=== PATIENT | male | born 1960 | race Caucasian/White ===

== ENCOUNTER 2020-08-07 12:39 | Emergency (ER) | payer MEDICARE, OTHER, SELFPAY ==
[2020-08-07 14:01] VITALS: BP 170/89; PULSE 89; RESP 18; TEMP 36.8; O2SAT 96; BMI 33.0
--- NOTE | 2020-08-07 14:37 | ED.SKABFB ---
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 No fever or chills. No blurred vision. No headache. MD complaint: abscess/boil Onset (ago): day(s) Tetanus up to date: yes Location: head Severity: mild Pain Consistency: intermittent Associated symptoms: denies other symptoms Treatments prior to arrival: none Related Data Home Medications Medication Instructions Recorded Confirmed albuterol sulfate 90 mcg/actuation 2 puff INHALATION Q4-6H PRN 07/26/20 07/26/20 aerosol inhaler diazepam 10 mg tablet 10 mg PO BID 07/26/20 07/26/20 gabapentin 100 mg capsule 200 mg PO BID cap 07/26/20 07/26/20 ibuprofen 800 mg tablet 800 mg PO TID 07/26/20 07/26/20 Previous Rx's Medication Instructions Recorded cephalexin [Keflex] 500 mg PO Q8H 10 Days #30 cap 08/07/20 mupirocin 1 applic TOPICAL BID 7 Days #22 g 08/07/20 sulfamethoxazole-trimethoprim 1 tab PO Q12H 7 Days #14 tab 08/07/20 [Bactrim DS] Allergies Allergy/AdvReac Type Severity Reaction Status Date / Time hydrocodone [HYDROCODONE] Allergy Unknown RASH Verified 08/07/20 14:00 latex [LATEX] Allergy Unknown UNKNOWN Verified 08/07/20 14:00 morphine Allergy Unknown stomach Verified 08/07/20 14:00 upset flu shot Allergy Unknown felt very Uncoded 08/07/20 14:00 sick Vicodin AdvReac Unknown stomach Uncoded 08/07/20 14:00 upset Review of Systems Review of Systems: Constitutional: No Weight loss, No Fever, No Chills, No Night Sweats, No Fatigue, No Malaise ENT/Mouth: No Hearing loss, No Ear Pain, No Nasal Congestion, No Sinus Pain, No Hoarseness, No sore throat, No Rhinorrhea, No Swallowing Difficulty Eyes: No Eye Pain, No Swelling, No Redness, No Foreign Body, No Discharge, No Vision Changes Cardiovascular: No Chest Pain Respiratory: No Cough, No Sputum Musculoskeletal: No joint pain, No Myalgias, No Joint Swelling Skin: No Skin Lesions, No rash Neuro: No Weakness, No Numbness, No Paresthesias, No Loss of Consciousness, No Dizziness, No Headache Psych: No Social Issues Heme/Lymph: No Bruising, No Bleeding,No Lymphadenopathy Endocrine: No Polyuria, No Polydipsia, No Temperature Intolerance Yes all other systems are reviewed and are negative [facility] Past Medical History Attestation statement: The following information was validated with the patient. Medical History Cervicalgia Constipation Degenerative cervical spinal stenosis Foraminal stenosis of cervical region Homeless Opiate abuse, continuous PTSD (post-traumatic stress disorder) Smoker Social History Social History (Reviewed 07/26/20 @ 16:51 by Spencer Cortez, [facility]) Alcohol intake: never Smoking Status: Current every day smoker Packs Per Day: 0.5 Cigarettes Per Day: 10.0 Use of substances other than those prescribed or required for medical reasons: Yes Substance Use Type: Marijuana Substance Use Frequency: Occasionally Advance Directives: No Advance Directives Information Provided: No Physical Exam Vital Signs: Vital Signs: Last Vital Signs Temp 98.3 F 08/07/20 14:01 Pulse 89 08/07/20 14:01 Resp 18 08/07/20 14:01 BP 170/89 H 08/07/20 14:01 Pulse Ox 96 08/07/20 14:01 Body Mass Index 33.0 Reviewed Const: General: cooperative and healthy appearing; No acute distress or intoxicated appearing Nutritional Appearance: average body habitus Orientation/consciousness: patient oriented x3 HENMT: Other: Site was covered with a scab which was de roofed. Area little bigger in size of a quarter slightly indurated but no expressible discharge. Head: Yes normal to inspection Ears: hearing grossly normal bilaterally Eyes: General: appearance normal, both eyes and all related structures Visual Spann: normal visual spann by confrontation Neck: Neck: Yes normal visual inspection, No positive Brudzinski's sign, No positive Kernig's sign and No tender Thyroid: Thyroid normal Chest: Chest palpation & inspection: normal inspection of the chest Resp: Effort & Inspection: normal respiratory effort Cardio: Jugular venous distension: no JVD GI: Inspection: Yes normal to inspection Percussion: Yes normal to percussion Auscultation: normal bowel sounds : General: Yes no CVA tenderness Back/Spine/Pelvis: Back: no CVA tenderness Skin: General skin exam: no rashes or lesions noted Neuro: General: patient oriented x3 Extrem: General: Yes normal to inspection MDM - Skin/Abscess/Foreign Bdy Differential Diagnosis Differential diagnosis: Likely abscess of skin or subcutaneous tissue, cellulitis, impetigo and contact dermatitis (Folliculitis) Discharge Plan Discharge Clinical Impression: Abscess of skin or subcutaneous tissue Patient Disposition: Home, Self-Care Instructions: Abscess (ED) Additional Instructions: You have a small scalp abscess likely from a follicular (hair infection) this abscess is about the size of a quarter and it already has a central opening which were worse able to express very small amount of purulent discharge from. There is no need for incisional drainage Keep site clean and dry Warm compresses Apply topical ointment as prescribed Take your antibiotics as prescribed Have recheck in about 5-7 days Return to emergency room if any concerns or worsening symptoms Thank you Prescriptions: New cephalexin [Keflex] 500 mg capsule 500 mg PO Q8H 10 Days Qty: 30 RF: 0 sulfamethoxazole-trimethoprim [Bactrim DS] 800-160 mg tablet 1 tab PO Q12H 7 Days Qty: 14 RF: 0 mupirocin 2 % ointment 1 applic topical BID 7 Days Qty: 22 RF: 0 No Action albuterol sulfate 90 mcg/actuation HFA aerosol inhaler 2 puff inhalation Q4-6H PRNRF: 0 diazepam 10 mg tablet 10 mg PO BID RF: 0 ibuprofen 800 mg tablet 800 mg PO TID RF: 0 gabapentin 100 mg capsule 200 mg PO BID RF: 0 Referrals: ED Physician,Generic [Emergency Provider] - 5 days (Primary care doctor)
== END 2020-08-07 15:18 | disposition home or self-care (01) ==
PROVIDERS: Emergency Provider Emergency Medicine
DX: L02.811 Cutaneous abscess of head [any part, except face] (principal); F17.200 Nicotine dependence, unspecified, uncomplicated; Z71.6 Tobacco abuse counseling; F12.90 Cannabis use, unspecified, uncomplicated; Z79.899 Other long term (current) drug therapy
CPT/HCPCS: 99284

== ENCOUNTER 2020-08-09 13:49 | Emergency (ER) | payer MEDICARE, OTHER, SELFPAY ==
[2020-08-09 14:01] VITALS: PULSE 92; RESP 16; TEMP 36.9; O2SAT 94; BMI 33.0
[2020-08-09] MEDS: Lidocaine HCl 1 % MPF 5 ML VIAL SUBCUT (15:03)
--- NOTE | 2020-08-09 15:14 | ED.SKABFB ---
HPI - Skin/Abscess/Foreign Bdy General Chief complaint: Skin/Abscess/Foreign Body Stated complaint: RECHECK ABSCESS Time Seen by Provider: 08/09/20 14:39 Source: patient Mode of arrival: ambulatory Limitations: no limitations History of Present Illness HPI narrative: 60-year-old male with a past medical history of MRSA presenting to the ED with complaints of worsening swelling to his scalp of the abscess that is currently being treated by Keflex and Bactrim prescribed on Friday when he was seen here. Reports he does not believe it was helping. Denies any additional complaints or concerns at this time. Related Data Home Medications Medication Instructions Recorded Confirmed albuterol sulfate 90 mcg/actuation 2 puff INHALATION Q4-6H PRN 07/26/20 07/26/20 aerosol inhaler diazepam 10 mg tablet 10 mg PO BID 07/26/20 07/26/20 gabapentin 100 mg capsule 200 mg PO BID cap 07/26/20 07/26/20 ibuprofen 800 mg tablet 800 mg PO TID 07/26/20 07/26/20 Previous Rx's Medication Instructions Recorded cephalexin [Keflex] 500 mg PO Q8H 10 Days #30 cap 08/07/20 mupirocin 1 applic TOPICAL BID 7 Days #22 g 08/07/20 sulfamethoxazole-trimethoprim 1 tab PO Q12H 7 Days #14 tab 08/07/20 [Bactrim DS] ibuprofen 800 mg PO Q8H PRN #14 tab 08/09/20 oxycodone-acetaminophen [Percocet] 1 tab PO Q6H PRN #10 tab 08/09/20 Allergies Allergy/AdvReac Type Severity Reaction Status Date / Time hydrocodone [HYDROCODONE] Allergy Unknown RASH Verified 08/07/20 14:00 latex [LATEX] Allergy Unknown UNKNOWN Verified 08/07/20 14:00 morphine Allergy Unknown stomach Verified 08/07/20 14:00 upset flu shot Allergy Unknown felt very Uncoded 08/07/20 14:00 sick Vicodin AdvReac Unknown stomach Uncoded 08/07/20 14:00 upset Review of Systems Review of Systems: Constitutional : No Fever, No Chills , no body aches, no recent illness Head/Face: No facial swelling, No facial redness ENT/Mouth : No oral/throat swelling, No Hoarseness, No Swallowing Difficulty Eyes: No Eye Pain, No Swelling, No Redness Cardiovascular : No Chest Pain, No SOB, No palpitations Respiratory : No Cough, No Sputum, No Wheezing, No Smoke Exposure, No Dyspnea Gastrointestinal : No Nausea, No Vomiting, No Diarrhea, No abdominal Pain Genitourinary : No Dysuria, No Urinary Frequency, No Hematuria Musculoskeletal : No joint pain, No Myalgias, No Joint Swelling Skin : + Skin Lesions/abscess, No rash Neuro : No Weakness, No Numbness, No Headache, No dizziness, No tingling Psych : No Anxiety/Panic, No Depression Heme/Lymph: No Bruising, No Lymphadenopathy Endocrine : No Polyuria, No Polydipsia Denies changes in lotions or detergents. Denies new medications or any changes in medications. Denies drainage from rash. Denies any recent sick contacts or recent travel. Yes all other systems are reviewed and are negative [facility] Past Medical History Attestation statement: The following information was validated with the patient. Medical History Cervicalgia Constipation Degenerative cervical spinal stenosis Foraminal stenosis of cervical region Homeless Opiate abuse, continuous PTSD (post-traumatic stress disorder) Smoker Social History Social History Alcohol intake: never Smoking Status: Current every day smoker Packs Per Day: 0.5 Cigarettes Per Day: 10.0 Substance Use Type: Marijuana Advance Directives: No Advance Directives Information Provided: Yes Physical Exam Vital Signs: Vital Signs: Last Vital Signs Temp 98.5 F 08/09/20 14:01 Pulse 92 08/09/20 14:01 Resp 16 08/09/20 14:01 Pulse Ox 94 08/09/20 14:01 Body Mass Index 33.0 vital signs have been reviewed as normal and appeared to be correct. Blood pressure normal. Heart rate normal. Respiration rate normal. Temperature normal. Oxygen saturation normal. Appearance: Alert. Oriented X3. No acute distress. Head: to the posterior scalp upper aspect there is medium size erythematous fluctuant abscess noted with mild purulent drainage. No foreign bodies noted. Eyes: PERRLA. EOMI. Conjunctiva and sclera normal. Eyelids normal. ENT: Pharynx normal. Uvula midline. Moist mucous membranes. Neck: Normal inspection. Neck supple. FROM. No adenopathy. No meningeal signs. CVS: Normal heart rate and rhythm. Heart sound normal. No murmurs noted. Pulses normal throughout. Respiratory: No respiratory distress. Painless inspiration. Back: Full range of motion noted. Skin: Skin warm and dry. Normal skin color. Normal skin turgor. No rashes/lacerations noted. See above. Extremities: No lower extremity edema. Extremities exhibit normal range of motion. Extremities nontender. Neuro: Oriented X 3. No motor deficit. No sensory deficit. Reflexes normal. Course Course Course Narrative: Patient is now status post I&D of scalp abscess. Is currently on Keflex and Bactrim is taking as prescribed. Denies any additional complaints or concerns at this time. Will DC home with symptomatic treatment along with instructions return if any new or worsening symptoms and to finish the antibiotics as previously prescribed and follow-up with primary care provider. Patient understands agrees with this plan. Procedures Abscess I/D Site: scalp Local Anesthetic: lidocaine 1% Amount of anesthesia used (mL): 5 Technique: incised with blade Amount of fluid expressed (mL): 3 Sent for culture/gram staining?: No Irrigation: Yes Packing used?: none Complications: other ( Mild bleeding no other complications) MDM - Skin/Abscess/Foreign Bdy Medical Records Attestation: I reviewed the patient's medical records. Discharge Plan Discharge Clinical Impression: Abscess of skin or subcutaneous tissue Patient Disposition: Home, Self-Care Instructions: Abscess (ED) Prescriptions: New ibuprofen 800 mg tablet 800 mg PO Q8H PRN (Reason: pain) Qty: 14 RF: 0 oxycodone-acetaminophen [Percocet] 5-325 mg tablet 1 tab PO Q6H PRN (Reason: pain) Qty: 10 RF: 0 No Action cephalexin [Keflex] 500 mg capsule 500 mg PO Q8H 10 Days Qty: 30 RF: 0 sulfamethoxazole-trimethoprim [Bactrim DS] 800-160 mg tablet 1 tab PO Q12H 7 Days Qty: 14 RF: 0 mupirocin 2 % ointment 1 applic topical BID 7 Days Qty: 22 RF: 0 albuterol sulfate 90 mcg/actuation HFA aerosol inhaler 2 puff inhalation Q4-6H PRNRF: 0 diazepam 10 mg tablet 10 mg PO BID RF: 0 ibuprofen 800 mg tablet 800 mg PO TID RF: 0 gabapentin 100 mg capsule 200 mg PO BID RF: 0 Referrals: Physician,Unknown [Primary Care Provider] - 2 days (your pcp) Print Language: Burkinan
== END 2020-08-09 15:34 | disposition home or self-care (01) ==
PROVIDERS: Emergency Provider Emergency Medicine
DX: L02.811 Cutaneous abscess of head [any part, except face] (principal); F17.200 Nicotine dependence, unspecified, uncomplicated; Z71.6 Tobacco abuse counseling; Z79.899 Other long term (current) drug therapy; Z79.2 Long term (current) use of antibiotics; Z59.0 Homelessness
CPT/HCPCS: 10060; 99284

== ENCOUNTER 2021-05-13 13:20 | Emergency (ER) | payer MEDICARE, SELFPAY ==
[2021-05-13 13:55] VITALS: BP 183/97; PULSE 72; RESP 18; TEMP 36.6; O2SAT 97; BMI 34.6
--- NOTE | 2021-05-13 18:36 | ED_ITS ---
HPI - General Adult General Chief complaint: General Medical Stated complaint: ? inf - foot pain swelling Time Seen by Provider: 05/13/21 17:45 Source: patient Mode of arrival: ambulatory Limitations: no limitations History of Present Illness HPI narrative: Patient with history of recurrent b/l leg swelling for last 1 year specially when patient stands for hours also patient allergic to latex wear shoes without socks sometimes, noticed increased swelling and rash on by both legs no fever no chills no shortness of breath no liver disease. Patient been sleeping in the car for last 1 year Related Data Home Medications Medication Instructions Recorded Confirmed albuterol sulfate 90 mcg/actuation 2 puff INHALATION Q4-6H PRN 07/26/20 07/26/20 aerosol inhaler diazepam 10 mg tablet 10 mg PO BID 07/26/20 07/26/20 gabapentin 100 mg capsule 200 mg PO BID cap 07/26/20 07/26/20 ibuprofen 800 mg tablet 800 mg PO TID 07/26/20 07/26/20 Previous Rx's Medication Instructions Recorded cephalexin 500 mg capsule (Keflex) 500 mg PO Q8H 10 Days #30 cap 08/07/20 mupirocin 2 % topical ointment 1 applic TOPICAL BID 7 Days #22 g 08/07/20 sulfamethoxazole 800 1 tab PO Q12H 7 Days #14 tab 08/07/20 mg-trimethoprim 160 mg tablet (Bactrim DS) ibuprofen 800 mg tablet 800 mg PO Q8H PRN #14 tab 08/09/20 oxycodone-acetaminophen 5 mg-325 1 tab PO Q6H PRN #10 tab 08/09/20 mg tablet (Percocet) azithromycin 250 mg tablet See Rx Instructions PO .COMPLEX #6 10/31/20 tab benzonatate 100 mg capsule 100 mg PO BID PRN #20 cap 10/31/20 (Tessalon Perles) prednisone 20 mg tablet 20 mg PO DAILY 9 Days #18 tab 10/31/20 cephalexin 500 mg capsule 500 mg PO QID 10 Days #40 cap 05/13/21 doxycycline hyclate 100 mg tablet 100 mg PO BID #20 tab 05/13/21 Allergies Allergy/AdvReac Type Severity Reaction Status Date / Time hydrocodone [HYDROCODONE] Allergy Unknown RASH Verified 08/07/20 14:00 Influenza Virus Vaccines Allergy Unknown felt very Verified 12/22/20 14:22 sick latex [LATEX] Allergy Unknown UNKNOWN Verified 08/07/20 14:00 morphine Allergy Unknown stomach Verified 09/12/20 14:22 upset acetaminophen [From Vicodin] AdvReac Unknown Stomach Verified 09/12/20 14:22 Upset Review of Systems Review of Systems: Yes all other systems are reviewed and are negative [facility] Past Medical History Medical History Cervicalgia Constipation Degenerative cervical spinal stenosis Foraminal stenosis of cervical region Homeless Opiate abuse, continuous PTSD (post-traumatic stress disorder) Smoker Surgical History History of arthroscopy of left shoulder History of discectomy History of surgery Family History Family History Father Alzheimer's disease Diabetes mellitus Mother COPD (chronic obstructive pulmonary disease) Pleurisy Brother No problems noted. Sister Melanoma Son No problems noted. Son No problems noted. Social History Social History Alcohol intake: current Alcohol intake frequency: holidays/special occasions only Alcohol type: beer and wine Cigarette Packs Per Day: 0.5 Cigarettes Per Day: 10.0 Substance Use Type: Marijuana Advance Directives: No Advance Directives Information Provided: No Physical Exam Vital Signs: Vital Signs: Last Vital Signs Temp 97.8 F 05/13/21 13:55 Pulse 72 05/13/21 13:55 Resp 18 05/13/21 13:55 BP 183/97 H 05/13/21 13:55 Pulse Ox 97 05/13/21 13:55 Body Mass Index 34.6 Appearance: Alert. Oriented X3. No acute distress. Eyes: No pallor or icterus ENT: Pharynx normal. Oral Mucosa moist Neck: Normal inspection. Neck supple. CVS: Normal heart rate and rhythm. Pulses normal. Respiratory: No respiratory distress. Equal air entry bilateral, no wheezing/rales/rhonchi Abdomen: Soft and nontender. Bowel sounds are present, no mass palpable, no CVA tenderness Skin: Skin warm and dry. Normal skin color. Normal skin turgor. Extremities:3+lower extremity edema ,erythematous rash bilateral lower extremity with scratch on No calf tenderness Mendoza sign negative Neuro: Oriented X 3. No motor deficit. No sensory deficit.No cerebellar signs , cranial nerves II-XII intact Medical Decision Making MDM Narrative Medical decision making narrative: Patient refused to stay in the ER for lab workup says that he had similar problem last year and had a workup done which was negative will give the prescription for doxycycline and Keflex patient will be following with his PCP tomorrow Discharge Plan Discharge Clinical Impression: Cellulitis Qualifiers: Site of cellulitis: extremity Site of cellulitis of extremity: lower extremity Laterality: unspecified laterality Qualified Code(s): L03.119 - Cellulitis of unspecified part of limb Patient Disposition: Left Against Medical Advice Instructions: Cellulitis (ED) Additional Instructions: Keep your legs elevated Antibiotic as prescribed Follow with PCP if not better Do not wear latex use Prescriptions: New cephalexin 500 mg capsule 500 mg PO QID 10 Days Qty: 40 RF: 0 doxycycline hyclate 100 mg tablet 100 mg PO BID Qty: 20 RF: 0 No Action cephalexin [Keflex] 500 mg capsule 500 mg PO Q8H 10 Days Qty: 30 RF: 0 sulfamethoxazole-trimethoprim [Bactrim DS] 800-160 mg tablet 1 tab PO Q12H 7 Days Qty: 14 RF: 0 mupirocin 2 % ointment 1 applic topical BID 7 Days Qty: 22 RF: 0 ibuprofen 800 mg tablet 800 mg PO Q8H PRN (Reason: pain) Qty: 14 RF: 0 oxycodone-acetaminophen [Percocet] 5-325 mg tablet 1 tab PO Q6H PRN (Reason: pain) Qty: 10 RF: 0 albuterol sulfate 90 mcg/actuation HFA aerosol inhaler 2 puff inhalation Q4-6H PRNRF: 0 diazepam 10 mg tablet 10 mg PO BID RF: 0 ibuprofen 800 mg tablet 800 mg PO TID RF: 0 gabapentin 100 mg capsule 200 mg PO BID RF: 0 azithromycin 250 mg tablet See Rx Instructions PO .COMPLEX Qty: 6 RF: 0 prednisone 20 mg tablet 20 mg PO DAILY 9 Days Qty: 18 RF: 0 benzonatate [Tessalon Perles] 100 mg capsule 100 mg PO BID PRN (Reason: cough) Qty: 20 RF: 0 Discharge Date/Time: 05/13/21 17:54
[2021-05-13] MEDS: cephALEXin 500 MG CAPSULE PO (19:17)
== END 2021-05-13 19:23 | disposition left against medical advice (07) ==
PROVIDERS: Emergency Provider Internal Medicine; PCP Nurse Practitioner Family
DX: L03.119 Cellulitis of unspecified part of limb (principal); F17.210 Nicotine dependence, cigarettes, uncomplicated; F12.90 Cannabis use, unspecified, uncomplicated; F11.10 Opioid abuse, uncomplicated; Z71.6 Tobacco abuse counseling; Z79.899 Other long term (current) drug therapy; Z59.0 Homelessness
CPT/HCPCS: 99283

== ENCOUNTER 2022-04-04 03:19 | Emergency (ER) | payer MEDICARE, SELFPAY ==
--- NOTE | ~2022-04-04 | XR_ITS ---
EXAMINATION: XR CHEST CLINICAL INFORMATION: Shortness of breath COMPARISON: None TECHNIQUE: 2 views of the chest were obtained. FINDINGS: The lungs are hyperinflated, suggesting underlying COPD. No focal consolidation is seen. No evidence of pneumothorax, pleural effusion, or pulmonary edema. The cardiomediastinal contour is unremarkable. Fusion hardware noted in the cervical spine. No acute osseous findings are seen. XR/XR chest 2V IMPRESSION: No acute cardiopulmonary findings. Hyperinflated lungs suggesting COPD.
[2022-04-04 03:33] VITALS: BP 151/89; RESP 22; TEMP 36.7; O2SAT 93; BMI 34.2
[2022-04-04 04:12] LABS: COVID-19 Test Negative (Negative); IDNOW Serial# 16C4AD1C; Influenza A Negative (Negative); Influenza B2 Negative (Negative)
--- NOTE | 2022-04-04 04:17 | ED.URI ---
HPI - URI/Sore Throat General Chief Complaint: Upper Respiratory Symptoms Stated Complaint: Sob Time Seen by Provider: 04/04/22 04:17 Source: patient Mode of arrival: ambulatory Limitations: no limitations History of Present Illness HPI Narrative: Patient is smoker with history of COPD been coughing with wheezing for last 2 3 days does not have an inhaler at home patient does get sick like this every year no fever no chills unable to get any phlegm out Related Data Home Medications Medication Instructions Recorded Confirmed albuterol sulfate 90 mcg/actuation 2 puff inhalation Q4-6H PRN 07/26/20 07/26/20 aerosol inhaler diazepam 10 mg tablet 10 mg PO BID 07/26/20 07/26/20 ibuprofen 800 mg tablet 800 mg PO TID 07/26/20 07/26/20 Previous Rx's Medication Instructions Recorded cephalexin 500 mg capsule (Keflex) 500 mg PO Q8H 10 days #30 caps 08/07/20 mupirocin 2 % topical ointment 1 applic topical BID 7 days #22 08/07/20 grams sulfamethoxazole 800 1 tab PO Q12H 7 days #14 tabs 08/07/20 mg-trimethoprim 160 mg tablet (Bactrim DS) ibuprofen 800 mg tablet 800 mg PO Q8H PRN pain #14 tabs 08/09/20 oxycodone-acetaminophen 5 mg-325 1 tab PO Q6H PRN pain #10 tabs 20 mg tablet (Percocet) azithromycin 250 mg tablet See Rx Instructions PO .COMPLEX #6 10/31/20 tabs benzonatate 100 mg capsule 100 mg PO BID PRN cough #20 caps 10/31/20 (Nini Nguyen) prednisone 20 mg tablet 20 mg PO DAILY 9 days #18 tabs 10/31/20 cephalexin 500 mg capsule 500 mg PO QID 10 days #40 caps 05/13/21 doxycycline hyclate 100 mg tablet 100 mg PO BID #20 tabs 05/13/21 triamcinolone acetonide 0.1 % 1 appl topical BID #30 grams 10/15/21 topical ointment gabapentin 600 mg tablet 600 mg PO TID 30 days #90 tabs 03/26/22 albuterol sulfate 90 mcg/actuation 2 puff inhalation Q4-6H PRN 04/04/22 aerosol inhaler (ProAir HFA) Wheezing #8.5 grams benzonatate 200 mg capsule 200 mg PO TID PRN cough #30 caps 04/04/22 doxycycline hyclate 100 mg tablet 100 mg PO BID #20 tabs 04/04/22 prednisone 20 mg tablet 40 mg PO DAILY #10 tabs 04/04/22 Allergies Allergy/AdvReac Type Severity Reaction Status Date / Time hydrocodone [HYDROCODONE] Allergy Unknown RASH Verified 10/15/21 15:06 Influenza Virus Vaccines Allergy Unknown felt very Verified 10/15/21 15:06 sick latex [LATEX] Allergy Unknown UNKNOWN Verified 10/15/21 15:06 morphine Allergy Unknown stomach Verified 10/15/21 15:06 upset acetaminophen [From Vicodin] AdvReac Unknown Stomach Verified 10/15/21 15:06 Upset Review of Systems Review of Systems: Yes all other systems are reviewed and are negative [facility] Past Medical History Medical History Cervicalgia Constipation Degenerative cervical spinal stenosis Foraminal stenosis of cervical region Homeless Opiate abuse, continuous PTSD (post-traumatic stress disorder) Smoker Surgical History History of arthroscopy of left shoulder History of discectomy History of surgery Family History Family History Father Alzheimer's disease Diabetes mellitus Mother COPD (chronic obstructive pulmonary disease) Pleurisy Brother No problems noted. Sister Melanoma Son No problems noted. Son No problems noted. Social History Social History Alcohol intake: current Alcohol intake frequency: holidays/special occasions only Alcohol type: beer and wine Cigarette Packs Per Day: 0.5 Cigarettes Per Day: 10.0 Substance Use Type: Marijuana Advance Directives: No Physical Exam Vital Signs: Vital Signs: Last Vital Signs Temp 98.0 F 04/04/22 03:33 Resp 22 H 04/04/22 03:33 BP 151/89 H 04/04/22 03:33 Pulse Ox 93 04/04/22 03:33 O2 Del Method 04/04/22 03:33 BMI result Body Mass Index 34.2 Appearance: Alert. Oriented X3. No acute distress. Eyes: No pallor or icterus ENT: Pharynx normal. Oral Mucosa moist Neck: Normal inspection. Neck supple. CVS: Normal heart rate and rhythm. Pulses normal. Respiratory: No respiratory distress. Equal air entry bilateral, bilateral wheezing no crackles Abdomen: Soft and nontender. Bowel sounds are present, no mass palpable, no CVA tenderness Skin: Skin warm and dry. Normal skin color. Normal skin turgor. Extremities: No lower extremity edema. No calf tenderness Neuro: Oriented X 3. No motor deficit. MDM - URI/Sore Throat MDM Narrative Medical decision making narrative: Patient has COPD chronic smoker with acute bronchitis chest x-ray negative for infiltrate will discharge patient home on doxycycline and and little inhaler with prednisone Lab Data Attestation: I reviewed the patient's lab results. Labs: Lab Results 04/04/22 04/04/22 Range/Units 03:40 03:40 COVID-19 (JOAN) Negative (Negative) COVID-19 Clin Com See Note Influenza Type A (KASSIE) Negative (Negative) Influenza Type B (KASSIE) Negative (Negative) Influenza A & B Note See Note Discharge Plan Discharge Clinical Impression: Bronchitis Patient Disposition: Home, Self-Care Instructions: Acute Bronchitis (ED) Additional Instructions: Take antibiotics and use inhaler as prescribed Follow with PCP if not better Prescriptions: New benzonatate 200 mg capsule 200 mg PO TID PRN (Reason: cough) Qty: 30 0RF albuterol sulfate [ProAir HFA] 90 mcg/actuation HFA aerosol inhaler 2 puff inhalation Q4-6H PRN (Reason: Wheezing) Qty: 8.5 0RF doxycycline hyclate 100 mg tablet 100 mg PO BID Qty: 20 0RF prednisone 20 mg tablet 40 mg PO DAILY Qty: 10 0RF No Action gabapentin 600 mg tablet 600 mg PO TID 30 Days Qty: 90 0RF cephalexin [Keflex] 500 mg capsule 500 mg PO Q8H 10 Days Qty: 30 0RF sulfamethoxazole-trimethoprim [Bactrim DS] 800-160 mg tablet 1 tab PO Q12H 7 Days Qty: 14 0RF mupirocin 2 % ointment 1 applic topical BID 7 Days Qty: 22 0RF ibuprofen 800 mg tablet 800 mg PO Q8H PRN (Reason: pain) Qty: 14 0RF oxycodone-acetaminophen [Percocet] 5-325 mg tablet 1 tab PO Q6H PRN (Reason: pain) Qty: 10 0RF cephalexin 500 mg capsule 500 mg PO QID 10 Days Qty: 40 0RF doxycycline hyclate 100 mg tablet 100 mg PO BID Qty: 20 0RF albuterol sulfate 90 mcg/actuation HFA aerosol inhaler 2 puff inhalation Q4-6H PRN diazepam 10 mg tablet 10 mg PO BID ibuprofen 800 mg tablet 800 mg PO TID azithromycin 250 mg tablet See Rx Instructions PO .COMPLEX Qty: 6 0RF Rx Instructions: take 500 mg today (day 1), then 250 mg for 4 days (days 2-5) PO prednisone 20 mg tablet 20 mg PO DAILY 9 Days Qty: 18 0RF Rx Instructions: 3 tabs/60mg for 3 days 2 tabs/40mg for 3 days 1 tab/20mg for 3 days benzonatate [Tessalon Perles] 100 mg capsule 100 mg PO BID PRN (Reason: cough) Qty: 20 0RF triamcinolone acetonide 0.1 % ointment 1 appl topical BID Qty: 30 0RF
[2022-04-04] MEDS: Albuterol/Iprat 2.5/0.5MG 3 ML AMPUL.NEB INHALE (04:30)
[2022-04-04] MEDS: Albuterol Sulfate 90 MCG 8 GM INHALER 2 PUFF INHALE (04:30)
[2022-04-04] MEDS: Benzonatate 100 MG CAPSULE 200 MG PO (04:46)
[2022-04-04] MEDS: predniSONE 20 MG TABLET 40 MG PO (04:47)
[2022-04-04 04:55] VITALS: RESP 19; O2SAT 95
--- NOTE | 2022-04-04 04:56 | PC.NURSE ---
pt a&o, pt reports feeling better after breathing treatment. medicated pt per Nov. Reviewed discharge instructions. pt verbalized understanding.
== END 2022-04-04 04:58 | disposition home or self-care (01) ==
PROVIDERS: Emergency Provider Internal Medicine
DX: J40 Bronchitis, not specified as acute or chronic (principal); R06.02 Shortness of breath; F17.210 Nicotine dependence, cigarettes, uncomplicated; Z71.6 Tobacco abuse counseling; Z20.822 Contact with and (suspected) exposure to COVID-19
CPT/HCPCS: 71046; 87502; 87635; 99284

== ENCOUNTER 2022-11-28 05:17 | Emergency (ER) | payer MEDICARE, SELFPAY ==
--- NOTE | ~2022-11-28 | XR_ITS ---
EXAMINATION: XR CHEST CLINICAL INFORMATION: Shortness of breath COMPARISON: 04/04/2022 TECHNIQUE: Frontal view of the chest was obtained. FINDINGS: Emphysema. No focal consolidation. No pleural effusion or pneumothorax. Normal heart size and pulmonary vascularity. No acute osseous abnormalities. XR/XR chest 1V IMPRESSION: * No acute findings. * Emphysema.
--- NOTE | ~2022-11-28 | US_ITS ---
EXAMINATION: US VENOUS ULTRASOUND WITH DOPPLER LOWER EXTREMITY, RIGHT CLINICAL INFORMATION: Swelling COMPARISON: None TECHNIQUE: Ultrasound of the deep veins is performed from the hip to the calf with compression sonography and color and pulse Doppler assessment. Spectral analysis with color-flow imaging is performed. FINDINGS: There is normal venous compression and respiratory variation and augmented flow. The visualized common femoral vein, superficial femoral vein, profunda femoral vein, popliteal vein, and the trifurcation region shows no evidence of deep venous thrombosis. There is no significant popliteal fossa cyst. If the patient's symptoms persist, followup ultrasound in 5 days 7 days might be of value to exclude proximal propagation from a non-visualized calf vein. US/US venous duplex LE RT IMPRESSION: No DVT demonstrated in the right lower extremity.
[2022-11-28 05:21] VITALS: BP 165/95; PULSE 110; RESP 24; TEMP 36.7; O2SAT 93; BMI 35.3
--- NOTE | 2022-11-28 05:45 | ED_ITS ---
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 Also started feeling short of breath with cough for last few days. Patient been taking care of his girlfriend who is dying of cancer and mostly sits for last few months does have a latex allergy and wearing the shoes with latex glue causing the inflammation of the right foot with worsening spreading although to the right thigh was the patient has been coughing which increased shortness of breath for last few days patient never had any blood clot in the past no fever no chills Related Data Home Medications Medication Instructions Recorded Confirmed albuterol sulfate 90 mcg/actuation 2 puff inhalation Q4-6H PRN 07/26/20 07/26/20 aerosol inhaler diazepam 10 mg tablet 10 mg PO BID 07/26/20 07/26/20 ibuprofen 800 mg tablet 800 mg PO TID 07/26/20 07/26/20 Previous Rx's Medication Instructions Recorded cephalexin 500 mg capsule (Keflex) 500 mg PO Q8H 10 days #30 caps 08/07/20 mupirocin 2 % topical ointment 1 applic topical BID 7 days #22 08/07/20 grams sulfamethoxazole 800 1 tab PO Q12H 7 days #14 tabs 08/07/20 mg-trimethoprim 160 mg tablet (Bactrim DS) ibuprofen 800 mg tablet 800 mg PO Q8H PRN pain #14 tabs 08/09/20 oxycodone-acetaminophen 5 mg-325 1 tab PO Q6H PRN pain #10 tabs 20 mg tablet (Percocet) azithromycin 250 mg tablet See Rx Instructions PO .COMPLEX #6 10/31/20 tabs benzonatate 100 mg capsule 100 mg PO BID PRN cough #20 caps 10/31/20 (Nini Nguyen) prednisone 20 mg tablet 20 mg PO DAILY 9 days #18 tabs 10/31/20 cephalexin 500 mg capsule 500 mg PO QID 10 days #40 caps 05/13/21 doxycycline hyclate 100 mg tablet 100 mg PO BID #20 tabs 05/13/21 triamcinolone acetonide 0.1 % 1 appl topical BID #30 grams 10/15/21 topical ointment gabapentin 600 mg tablet 600 mg PO TID 30 days #90 tabs 03/26/22 albuterol sulfate 90 mcg/actuation 2 puff inhalation Q4-6H PRN 04/04/22 aerosol inhaler (ProAir HFA) Wheezing #8.5 grams benzonatate 200 mg capsule 200 mg PO TID PRN cough #30 caps 04/04/22 doxycycline hyclate 100 mg tablet 100 mg PO BID #20 tabs 04/04/22 polyethylene glycol 3350 17 17 g PO DAILY #510 grams 04/04/22 gram/dose oral powder (Miralax) prednisone 20 mg tablet 40 mg PO DAILY #10 tabs 04/04/22 albuterol sulfate 90 mcg/actuation 2 puff inhalation Q4-6H PRN 11/28/22 aerosol inhaler (ProAir HFA) shortness of breath or wheezing #8.5 grams benzonatate 200 mg capsule 200 mg PO TID PRN cough #30 caps 11/28/22 cephalexin 500 mg capsule 500 mg PO QID 10 days #40 caps 11/28/22 doxycycline hyclate 100 mg tablet 100 mg PO BID #20 tabs 11/28/22 hydrochlorothiazide 25 mg tablet 25 mg PO QAM #30 tabs 11/28/22 Allergies Allergy/AdvReac Type Severity Reaction Status Date / Time hydrocodone [HYDROCODONE] Allergy Unknown RASH Verified 10/15/21 15:06 Influenza Virus Vaccines Allergy Unknown felt very Verified 10/15/21 15:06 sick latex [LATEX] Allergy Unknown UNKNOWN Verified 10/15/21 15:06 morphine Allergy Unknown stomach Verified 10/15/21 15:06 upset acetaminophen [From Vicodin] AdvReac Unknown Stomach Verified 10/15/21 15:06 Upset Review of Systems Review of Systems: Constitutional : No Weight loss, No Fever, No Chills ENT/Mouth : No sore throat, No Rhinorrhea Eyes: No Eye Pain, No Swelling Cardiovascular : No Chest Pain, no palpitations Respiratory : No Cough, No Sputum, + shortness of breath Gastrointestinal : no Nausea, No Vomiting, No Diarrhea, No abdominal Pain, no black stools Genitourinary : No Dysuria, No Urinary Frequency Musculoskeletal : No joint pain, No Myalgias, No Joint Swelling Skin : No Skin Lesions, No rash Neuro : No Weakness, No Numbness, No Dizziness, No Headache Psych : No Anxiety/Panic, No Depression Heme/Lymph: No Bruising, No Lymphadenopathy Endocrine : No Polyuria, No Polydipsia All other systems reviewed and are negative Yes all other systems are reviewed and are negative [facility] Past Medical History Medical History Cervicalgia Constipation Degenerative cervical spinal stenosis Foraminal stenosis of cervical region Homeless Opiate abuse, continuous PTSD (post-traumatic stress disorder) Smoker Surgical History History of arthroscopy of left shoulder History of discectomy History of surgery Family History Family History Father Alzheimer's disease Diabetes mellitus Mother COPD (chronic obstructive pulmonary disease) Pleurisy Brother No problems noted. Sister Melanoma Son No problems noted. Son No problems noted. Social History Social History Alcohol intake: never Cigarette Packs Per Day: 0.5 Cigarettes Per Day: 10.0 Smoked in Last 30 Days: Yes Use of substances other than those prescribed or required for medical reasons: No Substance Use Type: Marijuana Advance Directives: No Physical Exam Vital Signs: Vital Signs: Last Vital Signs Temp 98.1 F 11/28/22 05:21 Pulse 103 H 11/28/22 06:05 Resp 20 11/28/22 06:05 BP 175/97 H 11/28/22 06:00 Pulse Ox 94 11/28/22 06:00 O2 Del Method 11/28/22 06:00 BMI result Body Mass Index 35.3 Appearance: Alert. Oriented X3. No acute distress. Eyes: PERRLA, No Nystagmus ENT: Pharynx normal. Oral Mucosa moist Neck: Normal inspection. Neck supple. CVS: Normal heart rate and rhythm. Pulses normal. Respiratory: No respiratory distress. Equal air entry bilateral, prolonged expiration Abdomen: Soft and nontender. Bowel sounds are present, no mass palpable, no CVA tenderness Skin: Skin warm and dry. Normal skin color. Normal skin turgor. Extremities: Nonpitting bilateral lower extremity edema. Right calf tenderness with fullness Mendoza sign negative local warmth of right leg all the way to the thigh Neuro: Oriented X 3. No motor deficit. No sensory deficit.No cerebellar signs , cranial nerves II-XII intact Medications Administered Discontinued Medications Generic Name Dose Route Start Last Admin Trade Name Betina PRN Reason Stop Dose Admin Albuterol Sulfate 5 mg/ 0 mg 11/28/22 05:55 11/28/22 06:04 Ipratropium [place] 0.5 mg INHALE 11/28/22 05:56 2 each ONCE ONE Administration Medical Decision Making Medical Decision Making [facility] Narrative: Patient with right leg swelling workup is negative for DVT, WBC counts are normal lactic acid normal does have erythema of the skin likely cellulitis will give a dose of Zosyn and discharge patient on doxycycline and Keflex Differential Diagnosis DVT/PE/COPD/cellulitis Lab Data [facility] Lab Attestation statement: I reviewed the patient's lab results. 11/28/22 05:57 11/28/22 05:57 Labs: Lab Results 11/28/22 11/28/22 11/28/22 Range/Units 05:57 05:57 05:57 WBC 8.9 (4.8-10.8) X10*3/uL RBC 5.09 (4.60-5.80) X10*6/uL Hgb 14.5 (14.0-18.0) g/dl Hct 45.0 (42.0-52.0) % MCV 88.4 (80.0-98.0) fL MCH 28.5 (27.0-33.0) pg MCHC 32.2 (31.0-36.0) g/dl RDW 13.0 (11.0-16.0) % Plt Count 202 (160-400) X10*3/uL MPV 10.6 (9.4-12.4) fL Immature Gran % (Auto) 0.1 (0.0-0.4) % Neut % (Auto) 54.5 (45-73) % Lymph % (Auto) 26.7 (20-40) % [place] % (Auto) 10.0 (2-11) % Eos % (Auto) 7.3 H (0-4) % Baso % (Auto) 1.4 (0-2) % Lymph # (Auto) 2.4 (1.2-4.9) X10*3/uL [place] # (Auto) 0.9 (0.1-1.2) X10*3/uL Eos # (Auto) 0.7 H (0.0-0.4) X10*3/uL Baso # (Auto) 0.1 (0.0-0.2) X10*3/uL Abs Immat Gran (auto) 0.01 (0.00-0.03) X10*3/uL Absolute Neuts (auto) 4.8 (2.0-8.3) x10*3/uL Absolute Nucleated RBC 0.000 (0.0-0.012) X10*3/uL Nucleated RBC % (auto) 0.0 (0.0-0.2) /100WBC PT 10.5 (10.0-13.1) SEC INR 0.9 (0.9-1.1) APTT 30.6 (26.0-36.4) SEC D-Dimer High Sensitivty 337 NG/ML Sodium 139 (135-145) mmol/L Potassium 4.6 (3.3-5.1) mmol/L Chloride 100 (96-108) mmol/L Carbon Dioxide 30 H (22-29) mmol/L Anion Gap 14 (12-20) BUN 17 H (9-16) mg/dL Creatinine 1.03 (0.5-1.4) mg/dL Estim Creat Clear Calc 104.3 Estimated GFR > 60 Random Glucose 155 H (60-115) mg/dL Lactic Acid (0.5-2.0) mmol/L Calcium 9.1 (8.4-10.2) mg/dL Total Bilirubin 0.8 (0.0-1.0) mg/dL AST 35 (5-37) U/L ALT 32 (0-40) U/L Alkaline Phosphatase 82 (39-117) U/L B-Natriuretic Peptide (<100) pg/mL Total Protein 7.6 (6.5-8.0) g/dL Albumin 4.1 (3.5-5.0) g/dL COVID-19 (JOAN) (Negative) COVID-19 Clin Com 11/28/22 11/28/22 11/28/22 Range/Units 05:57 05:57 05:57 WBC (4.8-10.8) X10*3/uL RBC (4.60-5.80) X10*6/uL Hgb (14.0-18.0) g/dl Hct (42.0-52.0) % MCV (80.0-98.0) fL MCH (27.0-33.0) pg MCHC (31.0-36.0) g/dl RDW (11.0-16.0) % Plt Count (160-400) X10*3/uL MPV (9.4-12.4) fL Immature Gran % (Auto) (0.0-0.4) % Neut % (Auto) (45-73) % Lymph % (Auto) (20-40) % [place] % (Auto) (2-11) % Eos % (Auto) (0-4) % Baso % (Auto) (0-2) % Lymph # (Auto) (1.2-4.9) X10*3/uL [place] # (Auto) (0.1-1.2) X10*3/uL Eos # (Auto) (0.0-0.4) X10*3/uL Baso # (Auto) (0.0-0.2) X10*3/uL Abs Immat Gran (auto) (0.00-0.03) X10*3/uL Absolute Neuts (auto) (2.0-8.3) x10*3/uL Absolute Nucleated RBC (0.0-0.012) X10*3/uL Nucleated RBC % (auto) (0.0-0.2) /100WBC PT (10.0-13.1) SEC INR (0.9-1.1) APTT (26.0-36.4) SEC D-Dimer High Sensitivty NG/ML Sodium (135-145) mmol/L Potassium (3.3-5.1) mmol/L Chloride (96-108) mmol/L Carbon Dioxide (22-29) mmol/L Anion Gap (12-20) BUN (9-16) mg/dL Creatinine (0.5-1.4) mg/dL Estim Creat Clear Calc Estimated GFR Random Glucose (60-115) mg/dL Lactic Acid 0.9 (0.5-2.0) mmol/L Calcium (8.4-10.2) mg/dL Total Bilirubin (0.0-1.0) mg/dL AST (5-37) U/L ALT (0-40) U/L Alkaline Phosphatase (39-117) U/L B-Natriuretic Peptide 11 (<100) pg/mL Total Protein (6.5-8.0) g/dL Albumin (3.5-5.0) g/dL COVID-19 (JOAN) Negative (Negative) COVID-19 Clin Com See Note Discharge Plan Discharge Clinical Impression: Acute bronchitis, Cellulitis of leg, right, Leg edema Patient Disposition: Home, Self-Care Instructions: Cellulitis (ED), Acute Bronchitis (ED), Leg Edema (ED) Additional Instructions: Keep the legs elevated Antibiotic as prescribed Use inhaler every 4-6 hours as needed Cough drops as prescribed Report to the ER if high fever/worsening of the swelling Prescriptions: New benzonatate 200 mg capsule 200 mg PO TID PRN (Reason: cough) Qty: 30 0RF cephalexin 500 mg capsule 500 mg PO QID 10 Days Qty: 40 0RF albuterol sulfate [ProAir HFA] 90 mcg/actuation HFA aerosol inhaler 2 puff inhalation Q4-6H PRN (Reason: shortness of breath or wheezing) Qty: 8.5 2RF doxycycline hyclate 100 mg tablet 100 mg PO BID Qty: 20 0RF hydrochlorothiazide 25 mg tablet 25 mg PO QAM Qty: 30 0RF No Action gabapentin 600 mg tablet 600 mg PO TID 30 Days Qty: 90 0RF cephalexin [Keflex] 500 mg capsule 500 mg PO Q8H 10 Days Qty: 30 0RF sulfamethoxazole-trimethoprim [Bactrim DS] 800-160 mg tablet 1 tab PO Q12H 7 Days Qty: 14 0RF mupirocin 2 % ointment 1 applic topical BID 7 Days Qty: 22 0RF ibuprofen 800 mg tablet 800 mg PO Q8H PRN (Reason: pain) Qty: 14 0RF oxycodone-acetaminophen [Percocet] 5-325 mg tablet 1 tab PO Q6H PRN (Reason: pain) Qty: 10 0RF cephalexin 500 mg capsule 500 mg PO QID 10 Days Qty: 40 0RF doxycycline hyclate 100 mg tablet 100 mg PO BID Qty: 20 0RF benzonatate 200 mg capsule 200 mg PO TID PRN (Reason: cough) Qty: 30 0RF albuterol sulfate [ProAir HFA] 90 mcg/actuation HFA aerosol inhaler 2 puff inhalation Q4-6H PRN (Reason: Wheezing) Qty: 8.5 0RF doxycycline hyclate 100 mg tablet 100 mg PO BID Qty: 20 0RF prednisone 20 mg tablet 40 mg PO DAILY Qty: 10 0RF polyethylene glycol 3350 [Miralax] 17 gram/dose powder 17 g PO DAILY Qty: 510 0RF albuterol sulfate 90 mcg/actuation HFA aerosol inhaler 2 puff inhalation Q4-6H PRN diazepam 10 mg tablet 10 mg PO BID ibuprofen 800 mg tablet 800 mg PO TID azithromycin 250 mg tablet See Rx Instructions PO .COMPLEX Qty: 6 0RF Rx Instructions: take 500 mg today (day 1), then 250 mg for 4 days (days 2-5) PO prednisone 20 mg tablet 20 mg PO DAILY 9 Days Qty: 18 0RF Rx Instructions: 3 tabs/60mg for 3 days 2 tabs/40mg for 3 days 1 tab/20mg for 3 days benzonatate [Tessalon Perles] 100 mg capsule 100 mg PO BID PRN (Reason: cough) Qty: 20 0RF triamcinolone acetonide 0.1 % ointment 1 appl topical BID Qty: 30 0RF
[2022-11-28 06:00] VITALS: BP 175/97; PULSE 107; RESP 20; O2SAT 94
[2022-11-28 06:05] VITALS: PULSE 103; RESP 20; O2SAT 96
[2022-11-28 06:09] LABS: PLT CLUMP 1; SCAN SMEAR FLAG 1
[2022-11-28 06:11] LABS: Basophils Absolute Auto 0.1 X10*3/uL (0.0-0.2); Basophils Percent Auto 1.4 % (0-2); Eosinophils Absolute Auto 0.7 X10*3/uL (0.0-0.4); Eosinophils Percent Auto 7.3 % (0-4); Hemoglobin 14.5 g/dl (14.0-18.0); Imm Gran Abs Auto 0.01 X10*3/uL (0.00-0.03); Imm Gran Pct Auto 0.1 % (0.0-0.4); Lymphocytes Absolute Auto 2.4 X10*3/uL (1.2-4.9); Lymphocytes Percent Auto 26.7 % (20-40); Mean Corpuscular HGB Conc 32.2 g/dl (31.0-36.0); Mean Corpuscular Hemoglobin 28.5 pg (27.0-33.0); Mean Corpuscular Volume 88.4 fL (80.0-98.0); Mean Platelet Volume 10.6 fL (9.4-12.4); Monocytes Absolute Auto 0.9 X10*3/uL (0.1-1.2); Neutrophils Absolute Auto 4.8 x10*3/uL (2.0-8.3); Neutrophils Percent Auto 54.5 % (45-73); Red Blood Count 5.09 X10*6/uL (4.60-5.80)
[2022-11-28 06:13] LABS: MANUAL DIFF FLAG NO; White Blood Count 8.9 X10*3/uL (4.8-10.8)
[2022-11-28 06:22] LABS: COVID-19 Test Negative (Negative); IDNOW Serial# BCCEAD1C
[2022-11-28 06:26] LABS: Lactic Acid 0.9 mmol/L (0.5-2.0)
--- NOTE | 2022-11-28 06:27 | PC.NURSE ---
Pt A&Ox4, denies any pain. Reports increasing SOB. States I am taking care of my girlfriend who is sick, and I've been very stationary, I think I have an infection . Exertion upon walking to BR, RR 24, o2 sat 94% on RA, lung sounds diminished to the bases, respiratory therapist at bedside. BLL dryness/swelling , hot to touch noted. R leg noted to be tight feeling and red up to the inner thigh.
[2022-11-28 06:35] LABS: B Type Natriuretic Peptide 11 pg/mL (<100); Platelet Count 202 X10*3/uL (160-400)
[2022-11-28 06:36] LABS: Alanine Aminotransferase 32 U/L (0-40); Albumin Level 4.1 g/dL (3.5-5.0); Alkaline Phosphatase 82 U/L (39-117); Anion Gap 14 (12-20); Aspartate Amino Transferase 35 U/L (5-37); Bilirubin Total 0.8 mg/dL (0.0-1.0); Blood Urea Nitrogen 17 mg/dL (9-16); Calcium 9.1 mg/dL (8.4-10.2); Carbon Dioxide 30 mmol/L (22-29); Chloride 100 mmol/L (96-108); Creatinine Clr Calc Pharmacy 104.3; Estimated Glomerular Filt Rate > 60; Glucose Random 155 mg/dL (60-115); Potassium 4.6 mmol/L (3.3-5.1); Sodium 139 mmol/L (135-145); Total Protein 7.6 g/dL (6.5-8.0)
[2022-11-28 06:50] LABS: INTERNATIONAL NORM RATIO 0.9 (0.9-1.1); Prothrombin Time 10.5 SEC (10.0-13.1)
[2022-11-28 06:51] LABS: D Dimer High Sensitivity 337 NG/ML
[2022-11-28 06:52] LABS: Partial Thromboplastin Time 30.6 SEC (26.0-36.4)
[2022-11-28] MEDS: Piperacillin Sodium/Tazobactam 3.375 GM in 0.9 % Sodium Chloride 50 ML IV (07:09)
[2022-11-28 07:18] VITALS: BP 145/80; PULSE 91; RESP 16; TEMP 37; O2SAT 90
== END 2022-11-28 07:29 | disposition home or self-care (01) ==
PROVIDERS: Emergency Provider Internal Medicine
DX: J20.9 Acute bronchitis, unspecified (principal); R06.02 Shortness of breath; R60.0 Localized edema; R05.9 Cough, unspecified; L03.116 Cellulitis of left lower limb; L03.115 Cellulitis of right lower limb; F17.210 Nicotine dependence, cigarettes, uncomplicated; Z20.822 Contact with and (suspected) exposure to COVID-19; Z20.828 Contact with and (suspected) exposure to other viral communicable diseases; Z71.6 Tobacco abuse counseling; Z79.899 Other long term (current) drug therapy
CPT/HCPCS: 36415; 71045; 80053; 83605; 83880; 85025; 85379; 85610; 85730; 87040; 87635; 93971; 94640; 96365; 99284; 99285; J2543

== ENCOUNTER 2023-01-01 19:34 | Emergency (ER) | payer MEDICARE, MEDICAID, SELFPAY ==
--- NOTE | ~2023-01-01 | XR_ITS ---
EXAMINATION: XR CHEST CLINICAL INFORMATION: Cough. COMPARISON: Chest radiograph 11/28/2022. TECHNIQUE: 2 views of the chest were obtained. FINDINGS: Stable appearance of the cardiomediastinal silhouette. Mild diffuse interstitial thickening is unchanged. No focal infiltrate, pleural effusion or pneumothorax. Thoracic spondylosis. No displaced osseous fractures. XR/XR chest 2V IMPRESSION: Mild diffuse interstitial thickening, stable compared to 11/28/2022 but increased compared to chest radiograph dating back to 2010 findings are nonspecific and could be associated with an infectious or inflammatory process of the small airways such as reactive airways disease, bronchitis, asthma or atypical infections.
--- NOTE | ~2023-01-01 | CT_ITS ---
EXAMINATION: CT ABDOMEN AND PELVIS WITHOUT CONTRAST CLINICAL INFORMATION: Abdominal pain. COMPARISON: No similar priors. TECHNIQUE: Multidetector volumetric imaging was performed from the superior aspect of the liver through the pubic symphysis. Sagittal and coronal reformatted images were obtained on the technologist's workstation. This CT examination was performed using dose optimization techniques as appropriate, variously including the following: *Automated exposure control *Adjustment of mA and/or kV according to patient size (this includes techniques or standardized protocols for targeted exams where dose is matched to indication/reason for exam; i.e. extremities or head) *Use of iterative reconstruction technique DLP: 889 mGy-cm FINDINGS: LUNG BASES: Bronchial wall thickening with scattered intrabronchial secretions. No focal consolidation or pleural effusion. LIVER, GALLBLADDER, AND BILIARY TREE: The liver is enlarged with decreased parenchymal attenuation most suggestive of hepatic steatosis. No focal liver lesion are noted in this limited noncontrast examination. Normal appearance of the gallbladder, no cholelithiasis, no biliary ductal dilatation. PANCREAS: Limited noncontrast examination of the pancreas with diffuse fatty infiltration. No significant peripancreatic free fluid or fat stranding. SPLEEN: Limited noncontrast examination. There is a nonaggressive appearing 1.2 cm partially calcified lesion in the medial upper spleen, favoring to represent a pseudocyst. ADRENAL GLANDS: Unremarkable. KIDNEYS AND URETERS: Limited noncontrast examination. No nephrolithiasis or hydronephrosis. No significant perinephric fat stranding. BLADDER: Decompressed limiting its evaluation. No significant perivesical fat stranding. GASTROINTESTINAL TRACT: Stomach distended with debris, likely postprandial state. The small bowel is nondilated. Colonic diverticulosis without significant inflammatory changes to suspect acute diverticulitis. No bowel obstruction. The appendix is not identified, however there are no regional inflammatory changes to suspect acute appendicitis. ABDOMINAL WALL: Fat-containing umbilical and supraumbilical abdominal wall hernias without significant associated fat stranding or free fluid. LYMPH NODES: No pathologically enlarged lymph nodes. VASCULAR: Limited noncontrast examination. The abdominal aorta is normal in caliber. PELVIC VISCERA: Unremarkable. OSSEOUS STRUCTURES: No acute or aggressive appearing osseous abnormalities. Degenerative changes of the spine. CT/CT abdomen pelvis wo IV con IMPRESSION: 1. Hepatomegaly and hepatic steatosis. 2. Colonic diverticulosis but no evidence of acute diverticulitis. 3. Fat-containing umbilical and supraumbilical abdominal wall hernias. 4. Bronchial wall thickening with scattered intrabronchial secretions suggesting small airways disease.
[2023-01-01 19:46] VITALS: BP 163/97; PULSE 101; RESP 19; TEMP 36.7; O2SAT 92; BMI 34.7
--- NOTE | 2023-01-01 19:47 | ED_ITS ---
HPI - Abdominal Pain General Chief Complaint: General Medical <Sabrina Whipple NP - Last Filed: 01/01/23 19:53> Stated Complaint: abd pain , right leg swelling <Sabrina Whipple NP - Last Filed: 01/01/23 19:53> Time Seen by Provider: 01/01/23 22:43 <Sabrina Whipple NP - Last Filed: 01/01/23 19:53> Source: patient <Addis Wheeler MD - Last Filed: 01/02/23 00:49> Mode of arrival: ambulatory <Addis Wheeler MD - Last Filed: 01/02/23 00:49> History of Present Illness HPI narrative: 62-year-old male who presents with complaints of abdominal pain and persistent right lower extremity swelling and redness. Patient is an everyday smoker and has recently lost his girlfriend to lung cancer in states that he had purchased some cream cycles from [employer] and then noticed that there were portions of the would frozen within the popsicle. <Addis Wheeler MD - Last Filed: 01/02/23 00:49> Related Data Home Medications: Home Medications Medication Instructions Recorded Confirmed albuterol sulfate 90 mcg/actuation 2 puff inhalation Q4-6H PRN 07/26/20 07/26/20 aerosol inhaler diazepam 10 mg tablet 10 mg PO BID 07/26/20 07/26/20 ibuprofen 800 mg tablet 800 mg PO TID 07/26/20 07/26/20 Previous Rx's Medication Instructions Recorded cephalexin 500 mg capsule (Keflex) 500 mg PO Q8H 10 days #30 caps 08/07/20 mupirocin 2 % topical ointment 1 applic topical BID 7 days #22 08/07/20 grams sulfamethoxazole 800 1 tab PO Q12H 7 days #14 tabs 08/07/20 mg-trimethoprim 160 mg tablet (Bactrim DS) ibuprofen 800 mg tablet 800 mg PO Q8H PRN pain #14 tabs 08/09/20 oxycodone-acetaminophen 5 mg-325 1 tab PO Q6H PRN pain #10 tabs 08/09/20 mg tablet (Percocet) azithromycin 250 mg tablet See Rx Instructions PO .COMPLEX #6 10/31/20 tabs benzonatate 100 mg capsule 100 mg PO BID PRN cough #20 caps 10/31/20 (Tesmaira Nguyen) prednisone 20 mg tablet 20 mg PO DAILY 9 days #18 tabs 10/31/20 cephalexin 500 mg capsule 500 mg PO QID 10 days #40 caps 05/13/21 doxycycline hyclate 100 mg tablet 100 mg PO BID #20 tabs 05/13/21 triamcinolone acetonide 0.1 % 1 appl topical BID #30 grams 10/15/21 topical ointment gabapentin 600 mg tablet 600 mg PO TID 30 days #90 tabs 03/26/22 albuterol sulfate 90 mcg/actuation 2 puff inhalation Q4-6H PRN 04/04/22 aerosol inhaler (ProAir HFA) Wheezing #8.5 grams benzonatate 200 mg capsule 200 mg PO TID PRN cough #30 caps 04/04/22 doxycycline hyclate 100 mg tablet 100 mg PO BID #20 tabs 04/04/22 polyethylene glycol 3350 17 17 g PO DAILY #510 grams 04/04/22 gram/dose oral powder (Miralax) prednisone 20 mg tablet 40 mg PO DAILY #10 tabs 04/04/22 albuterol sulfate 90 mcg/actuation 2 puff inhalation Q4-6H PRN 11/28/22 aerosol inhaler (ProAir HFA) shortness of breath or wheezing #8.5 grams benzonatate 200 mg capsule 200 mg PO TID PRN cough #30 caps 11/28/22 cephalexin 500 mg capsule 500 mg PO QID 10 days #40 caps 11/28/22 clobetasol 0.05 % topical ointment 1 appl topical BEDTIME 4 weeks #45 11/28/22 (Temovate) grams doxycycline hyclate 100 mg tablet 100 mg PO BID #20 tabs 11/28/22 hydrochlorothiazide 25 mg tablet 25 mg PO QAM #30 tabs 11/28/22 cephalexin 500 mg capsule 500 mg PO BID 7 days #14 caps 01/02/23 doxycycline monohydrate 100 mg 100 mg PO BID 7 days #14 caps 01/02/23 capsule prednisone 50 mg tablet 50 mg PO DAILY 4 days #4 tabs 01/02/23 <Sabrina Whipple [employer] - Last Filed: 01/01/23 19:53> Allergies/Adverse Reactions: Allergies Allergy/AdvReac Type Severity Reaction Status Date / Time hydrocodone [HYDROCODONE] Allergy Unknown RASH Verified 01/01/23 19:55 Influenza Virus Vaccines Allergy Unknown felt very Verified 01/01/23 19:55 sick latex [LATEX] Allergy Unknown UNKNOWN Verified 01/01/23 19:55 morphine Allergy Unknown stomach Verified 01/01/23 19:55 upset acetaminophen [From Vicodin] AdvReac Unknown Stomach Verified 01/01/23 19:55 Upset <Sabrina Whipple NP - Last Filed: 01/01/23 19:53> Review of Systems Review of Systems Pertinent positives and negatives as stated in HPI <Addis Wheeler MD - Last Filed: 01/02/23 00:49> PMFSH Past Medical History Source: nursing notes reviewed <Addis Wheeler MD - Last Filed: 01/02/23 00:49> Medical History: Medical History Cervicalgia Constipation Degenerative cervical spinal stenosis Foraminal stenosis of cervical region Homeless Opiate abuse, continuous PTSD (post-traumatic stress disorder) Smoker <Sabrina Whipple NP - Last Filed: 01/01/23 19:53> Surgical History: Surgical History History of arthroscopy of left shoulder History of discectomy History of surgery <Sabrina Whipple NP - Last Filed: 01/01/23 19:53> Family History Family History: Family History Father Alzheimer's disease Diabetes mellitus Mother COPD (chronic obstructive pulmonary disease) Pleurisy Brother No problems noted. Sister Melanoma Son No problems noted. Son No problems noted. <Sabrina Whipple NP - Last Filed: 01/01/23 19:53> Social History Social History: Social History Alcohol intake: never Cigarette Packs Per Day: 0.5 Cigarettes Per Day: 10.0 Substance Use Type: Marijuana Advance Directives: No Advance Directives Information Provided: No <Sabrina Whipple NP - Last Filed: 01/01/23 19:53> Physical Exam ED Vital Signs: Vital Signs - 24 hr 01/01/23 19:46 Temperature 98.1 F Pulse Rate 101 H Respiratory Rate 19 Blood Pressure 163/97 H Pulse Oximetry 92 BMI result Body Mass Index 34.7 <Sabrina Whipple NP - Last Filed: 01/01/23 19:53> Vital Signs - 24 hr 01/01/23 19:46 Temperature 98.1 F Pulse Rate 101 H Respiratory Rate 19 Blood Pressure 163/97 H Pulse Oximetry 92 BMI result Body Mass Index 34.7 VITAL SIGNS: Reviewed. GENERAL: Elevated BMI, Well developed, well nourished, in mild distress. HEAD: Normocephalic/atraumatic EYES: PERRLA, EOMI EARS: Ext canals without abnormality NOSE: Nares patent bilateral OROPHARYNX: no oral lesions noted, posterior pharynx clear NECK: Supple, no adenopathy LUNGS: Normal breath sounds. No adventitious sounds or accessory muscle use. SpO2<92> CARDIOVASCULAR: Regular rate and rhythm without noted murmurs, no JVD ABDOMEN: Soft, tenderness to palpation without rebound, non-distended with bowel sounds. MUSCULOSKELETAL: No tenderness, deformities, or effusions noted on gross inspection. EXTREMITIES: No cyanosis, clubbing or edema; BILATERAL LOWER EXTREMITY EDEMA: On the left appears to be chronic with skin thickening and darkening, examination of the foot no obvious skin breaks or infections involving the toe, on the right this extremity is much more edematous, taut, erythematous with induration that extends up into the thigh area, palpable pulses SKIN: Inspection of the skin reveals no rashes NEUROLOGIC: Alert and oriented x 4. Strength and sensation to light touch were grossly intact x 4. <Addis Wheeler MD - Last Filed: 01/02/23 00:49> Course Course Course Narrative: This is a rapid medical exam. Deferred additional HPI, ROS, PE to primary provider. 62 yo with history of chronic pain from cervical arthritis on methadone smoker, history of PTSD, asthma here with diarrhea/rectal pain. No vomiting/fever. No rectal bleeding. Patient feels this is related to eating popsicles with wood popsicle sticks and states I pulled two piece of wood out of my ass. Also c/o right leg swelling/pain which has been that way for weeks. Did have improvement with oral antibiotics after being seen in the ER 11/3022. Will obtain labs. VSS <Sabrina Whipple NP - Last Filed: 01/01/23 19:53> Medical Decision Making Medical Decision Making [facility] Narrative: 62-year-old male with history and clinical presentation after story regarding foreign objects in his food will evaluate abdomen pelvis with CT scan although patient appears comfortable and is hemodynamically stable. In additi on, although I do not note any leukocytosis the right lower extremity appears quite edematous and indurated and will consider repeating venous duplex in that extremity although a feels warm suggesting a component of infection, however he is afebrile and again no leukocytosis. I reviewed all remaining investigations to include imaging studies my interpretation is patient has mild cellulitis with suspected chronic component and will be treated with dual antibiotics as well as treatment for likely chronic lung disease.. <Addis Wheeler MD - Last Filed: 01/02/23 00:49> Differential Diagnosis Please see the discussion above <Addis Wheeler MD - Last Filed: 01/02/23 00:49> Lab Data Please see the discussion above <Addis Wheeler MD - Last Filed: 01/02/23 00:49> Result Diagrams: 01/01/23 20:08 01/01/23 20:08 <Sabrina Whipple NP - Last Filed: 01/01/23 19:53> Labs: Lab Results 01/01/23 01/01/23 01/01/23 Range/Units 20:08 20:08 20:08 WBC 8.9 (4.8-10.8) X10*3/uL RBC 5.05 (4.60-5.80) X10*6/uL Hgb 14.4 (14.0-18.0) g/dl Hct 45.3 (42.0-52.0) % MCV 89.7 (80.0-98.0) fL MCH 28.5 (27.0-33.0) pg MCHC 31.8 (31.0-36.0) g/dl RDW 13.2 (11.0-16.0) % Plt Count 238 (160-400) X10*3/uL MPV 9.6 (9.4-12.4) fL Immature Gran % (Auto) 0.2 (0.0-0.4) % Neut % (Auto) 54.8 (45-73) % Lymph % (Auto) 27.3 (20-40) % Simpson % (Auto) 10.3 (2-11) % Eos % (Auto) 6.2 H (0-4) % Baso % (Auto) 1.2 (0-2) % Lymph # (Auto) 2.4 (1.2-4.9) X10*3/uL Simpson # (Auto) 0.9 (0.1-1.2) X10*3/uL Eos # (Auto) 0.6 H (0.0-0.4) X10*3/uL Baso # (Auto) 0.1 (0.0-0.2) X10*3/uL Abs Immat Gran (auto) 0.02 (0.00-0.03) X10*3/uL Absolute Neuts (auto) 4.9 (2.0-8.3) x10*3/uL Absolute Nucleated RBC 0.000 (0.0-0.012) X10*3/uL Nucleated RBC % (auto) 0.0 (0.0-0.2) /100WBC Sodium 142 (135-145) mmol/L Potassium 4.0 (3.3-5.1) mmol/L Chloride 103 (96-108) mmol/L Carbon Dioxide 31 H (22-29) mmol/L Anion Gap 12 (12-20) BUN 18 H (9-16) mg/dL Creatinine 1.01 (0.5-1.4) mg/dL Estim Creat Clear Calc 105.4 Estimated GFR > 60 Random Glucose 113 (60-115) mg/dL Lactic Acid 1.2 (0.5-2.0) mmol/L Calcium 9.2 (8.4-10.2) mg/dL Total Bilirubin 0.8 (0.0-1.0) mg/dL Direct Bilirubin 0.2 (0.0-0.5) mg/dL AST 22 (5-37) U/L ALT 27 (0-40) U/L Alkaline Phosphatase 86 (39-117) U/L Total Protein 7.2 (6.5-8.0) g/dL Albumin 4.1 (3.5-5.0) g/dL Lipase 18 (8-78) U/L <Sabrina Whipple, [employer] - Last Filed: 01/01/23 19:53> Lab Results 01/01/23 01/01/23 01/01/23 Range/Units 20:08 20:08 20:08 WBC 8.9 (4.8-10.8) X10*3/uL RBC 5.05 (4.60-5.80) X10*6/uL Hgb 14.4 (14.0-18.0) g/dl Hct 45.3 (42.0-52.0) % MCV 89.7 (80.0-98.0) fL MCH 28.5 (27.0-33.0) pg MCHC 31.8 (31.0-36.0) g/dl RDW 13.2 (11.0-16.0) % Plt Count 238 (160-400) X10*3/uL MPV 9.6 (9.4-12.4) fL Immature Gran % (Auto) 0.2 (0.0-0.4) % Neut % (Auto) 54.8 (45-73) % Lymph % (Auto) 27.3 (20-40) % Simpson % (Auto) 10.3 (2-11) % Eos % (Auto) 6.2 H (0-4) % Baso % (Auto) 1.2 (0-2) % Lymph # (Auto) 2.4 (1.2-4.9) X10*3/uL Simpson # (Auto) 0.9 (0.1-1.2) X10*3/uL Eos # (Auto) 0.6 H (0.0-0.4) X10*3/uL Baso # (Auto) 0.1 (0.0-0.2) X10*3/uL Abs Immat Gran (auto) 0.02 (0.00-0.03) X10*3/uL Absolute Neuts (auto) 4.9 (2.0-8.3) x10*3/uL Absolute Nucleated RBC 0.000 (0.0-0.012) X10*3/uL Nucleated RBC % (auto) 0.0 (0.0-0.2) /100WBC Sodium 142 (135-145) mmol/L Potassium 4.0 (3.3-5.1) mmol/L Chloride 103 (96-108) mmol/L Carbon Dioxide 31 H (22-29) mmol/L Anion Gap 12 (12-20) BUN 18 H (9-16) mg/dL Creatinine 1.01 (0.5-1.4) mg/dL Estim Creat Clear Calc 105.4 Estimated GFR > 60 Random Glucose 113 (60-115) mg/dL Lactic Acid 1.2 (0.5-2.0) mmol/L Calcium 9.2 (8.4-10.2) mg/dL Total Bilirubin 0.8 (0.0-1.0) mg/dL Direct Bilirubin 0.2 (0.0-0.5) mg/dL AST 22 (5-37) U/L ALT 27 (0-40) U/L Alkaline Phosphatase 86 (39-117) U/L Total Protein 7.2 (6.5-8.0) g/dL Albumin 4.1 (3.5-5.0) g/dL Lipase 18 (8-78) U/L <Addis Wheeler MD - Last Filed: 01/02/23 00:49> Independent Interpretation I performed an independent interpretation of an: EKG <Addis Wheeler MD - Last Filed: 01/02/23 00:49> Interpretation: Normal sinus rhythm, HR-97, no STEMI, CO/QRS are within normal limits, QTC -497 (patient on daily methadone) <Addis Wheeler MD - Last Filed: 01/02/23 00:49> Radiology Impression Radiologist Impression: My interpretation is in agreement with radiology's impression of the imaging studies. <Addis Wheeler MD - Last Filed: 01/02/23 00:49> External Record Review External record reviewed: Outpatient record and Prior outpatient labs <Addis Wheeler MD - Last Filed: 01/02/23 00:49> Discharge Plan Discharge Clinical Impression: COPD (chronic obstructive pulmonary disease), Cellulitis, Chronic venous stasis dermatitis <Sabrina Whipple NP - Last Filed: 01/01/23 19:53> Patient Disposition: Home, Self-Care <Sabrina Whipple NP - Last Filed: 01/01/23 19:53> Instructions: Cellulitis (ED), COPD (Chronic Obstructive Pulmonary Disease) (ED), Venous Insufficiency (DC) <Sabrina Whipple NP - Last Filed: 01/01/23 19:53> Additional Instructions: 1. Please take medications as prescribed. Complete the entire course of antibiotics. 2. Please follow-up with your primary care provider. Return to the ER for any worsening symptoms. <Sabrina Whipple NP - Last Filed: 01/01/23 19:53> Prescriptions: New doxycycline monohydrate 100 mg capsule 100 mg PO BID 7 Days Qty: 14 0RF cephalexin 500 mg capsule 500 mg PO BID 7 Days Qty: 14 0RF prednisone 50 mg tablet 50 mg PO DAILY 4 Days Qty: 4 0RF No Action gabapentin 600 mg tablet 600 mg PO TID 30 Days Qty: 90 0RF cephalexin [Keflex] 500 mg capsule 500 mg PO Q8H 10 Days Qty: 30 0RF sulfamethoxazole-trimethoprim [Bactrim DS] 800-160 mg tablet 1 tab PO Q12H 7 Days Qty: 14 0RF mupirocin 2 % ointment 1 applic topical BID 7 Days Qty: 22 0RF ibuprofen 800 mg tablet 800 mg PO Q8H PRN (Reason: pain) Qty: 14 0RF oxycodone-acetaminophen [Percocet] 5-325 mg tablet 1 tab PO Q6H PRN (Reason: pain) Qty: 10 0RF cephalexin 500 mg capsule 500 mg PO QID 10 Days Qty: 40 0RF doxycycline hyclate 100 mg tablet 100 mg PO BID Qty: 20 0RF benzonatate 200 mg capsule 200 mg PO TID PRN (Reason: cough) Qty: 30 0RF albuterol sulfate [ProAir HFA] 90 mcg/actuation HFA aerosol inhaler 2 puff inhalation Q4-6H PRN (Reason: Wheezing) Qty: 8.5 0RF doxycycline hyclate 100 mg tablet 100 mg PO BID Qty: 20 0RF prednisone 20 mg tablet 40 mg PO DAILY Qty: 10 0RF polyethylene glycol 3350 [Miralax] 17 gram/dose powder 17 g PO DAILY Qty: 510 0RF benzonatate 200 mg capsule 200 mg PO TID PRN (Reason: cough) Qty: 30 0RF cephalexin 500 mg capsule 500 mg PO QID 10 Days Qty: 40 0RF albuterol sulfate [ProAir HFA] 90 mcg/actuation HFA aerosol inhaler 2 puff inhalation Q4-6H PRN (Reason: shortness of breath or wheezing) Qty: 8.5 2RF doxycycline hyclate 100 mg tablet 100 mg PO BID Qty: 20 0RF hydrochlorothiazide 25 mg tablet 25 mg PO QAM Qty: 30 0RF clobetasol [Temovate] 0.05 % ointment 1 appl topical BEDTIME 28 Days Qty: 45 2RF albuterol sulfate 90 mcg/actuation HFA aerosol inhaler 2 puff inhalation Q4-6H PRN diazepam 10 mg tablet 10 mg PO BID ibuprofen 800 mg tablet 800 mg PO TID azithromycin 250 mg tablet See Rx Instructions PO .COMPLEX Qty: 6 0RF Rx Instructions: take 500 mg today (day 1), then 250 mg for 4 days (days 2-5) PO prednisone 20 mg tablet 20 mg PO DAILY 9 Days Qty: 18 0RF Rx Instructions: 3 tabs/60mg for 3 days 2 tabs/40mg for 3 days 1 tab/20mg for 3 days benzonatate [Tessalon Perles] 100 mg capsule 100 mg PO BID PRN (Reason: cough) Qty: 20 0RF triamcinolone acetonide 0.1 % ointment 1 appl topical BID Qty: 30 0RF <Sabrina Whipple [employer] - Last Filed: 01/01/23 19:53>
[2023-01-01 20:13] LABS: MANUAL DIFF FLAG NO
[2023-01-01 20:17] LABS: Basophils Absolute Auto 0.1 X10*3/uL (0.0-0.2); Basophils Percent Auto 1.2 % (0-2); Eosinophils Absolute Auto 0.6 X10*3/uL (0.0-0.4); Eosinophils Percent Auto 6.2 % (0-4); Hematocrit 45.3 % (42.0-52.0); Hemoglobin 14.4 g/dl (14.0-18.0); Imm Gran Abs Auto 0.02 X10*3/uL (0.00-0.03); Imm Gran Pct Auto 0.2 % (0.0-0.4); Lymphocytes Absolute Auto 2.4 X10*3/uL (1.2-4.9); Lymphocytes Percent Auto 27.3 % (20-40); Mean Corpuscular HGB Conc 31.8 g/dl (31.0-36.0); Mean Corpuscular Hemoglobin 28.5 pg (27.0-33.0); Mean Corpuscular Volume 89.7 fL (80.0-98.0); Mean Platelet Volume 9.6 fL (9.4-12.4); Monocytes Absolute Auto 0.9 X10*3/uL (0.1-1.2); Monocytes Percent Auto 10.3 % (2-11); Neutrophils Absolute Auto 4.9 x10*3/uL (2.0-8.3); Neutrophils Percent Auto 54.8 % (45-73); Platelet Count 238 X10*3/uL (160-400); Red Blood Count 5.05 X10*6/uL (4.60-5.80); Red Cell Distribution Width 13.2 % (11.0-16.0); White Blood Count 8.9 X10*3/uL (4.8-10.8)
[2023-01-01 20:24] LABS: Lactic Acid 1.2 mmol/L (0.5-2.0)
[2023-01-01 20:28] LABS: Alanine Aminotransferase 27 U/L (0-40); Albumin Level 4.1 g/dL (3.5-5.0); Alkaline Phosphatase 86 U/L (39-117); Anion Gap 12 (12-20); Aspartate Amino Transferase 22 U/L (5-37); Bilirubin Direct 0.2 mg/dL (0.0-0.5); Bilirubin Total 0.8 mg/dL (0.0-1.0); Blood Urea Nitrogen 18 mg/dL (9-16); Calcium 9.2 mg/dL (8.4-10.2); Carbon Dioxide 31 mmol/L (22-29); Chloride 103 mmol/L (96-108); Creatinine Clr Calc Pharmacy 105.4; Estimated Glomerular Filt Rate > 60; Glucose Random 113 mg/dL (60-115); Lipase 18 U/L (8-78); Sodium 142 mmol/L (135-145); Total Protein 7.2 g/dL (6.5-8.0)
--- NOTE | 2023-01-01 23:35 | ECG_ITS ---
Test Reason : SWELLING LEGS Blood Pressure : / mmHG Vent. Rate : 097 BPM Atrial Rate : 097 BPM P-R Int : 168 ms QRS Dur : 100 ms QT Int : 392 ms P-R-T Axes : 078 059 065 degrees QTc Int : 497 ms Normal sinus rhythm Nonspecific T wave abnormality Prolonged QT Abnormal ECG When compared with ECG of 12-SEP-2014 15:10, No significant change was found Referred By: Addis Wheeler Electronically Signed By:BLANCA HOLLAND MD
[2023-01-02 00:39] LABS: B Type Natriuretic Peptide 21 pg/mL (<100)
[2023-01-02 00:56] VITALS: BP 140/78; PULSE 84; RESP 12; TEMP 36.7; O2SAT 96
[2023-01-02 01:26] VITALS: BP 145/90; PULSE 91; RESP 18
[2023-01-02] MEDS: Albuterol Sulfate 90 MCG 8 GM INHALER 2 PUFF INHALE (01:27)
[2023-01-02] MEDS: predniSONE 10 MG TABLET 50 MG PO (01:27)
[2023-01-02] MEDS: cephALEXin 500 MG CAPSULE PO (01:28)
[2023-01-02] MEDS: Doxycycline Monohydrate 100 MG CAPSULE PO (01:28)
--- NOTE | 2023-01-02 01:34 | PC.NURSE ---
Pt aox4 resting at the bedside. Medicated as ordered. Pt tolerated well. Dischage instructions reviewed with pt. Pt verbalizes understanding.
== END 2023-01-02 01:35 | disposition home or self-care (01) ==
PROVIDERS: Nurse Practitioner Family; Emergency Provider Student in an Organized Health Care Education/Training Program
DX: I87.2 Venous insufficiency (chronic) (peripheral) (principal); J44.9 Chronic obstructive pulmonary disease, unspecified; L03.90 Cellulitis, unspecified; R10.31 Right lower quadrant pain; M79.89 Other specified soft tissue disorders
CPT/HCPCS: 36415; 71046; 74176; 80048; 80076; 83605; 83690; 83880; 85025; 87040; 93005; 99284

== ENCOUNTER 2023-01-11 22:11 | Emergency (ER) | payer MEDICARE, MEDICAID, SELFPAY ==
--- NOTE | ~2023-01-11 | XR_ITS ---
EXAMINATION: XR CHEST CLINICAL INFORMATION: Dyspnea COMPARISON: 01/01/2023 TECHNIQUE: 2 views of the chest were obtained. FINDINGS: Lung volumes are symmetric. No focal consolidation is seen. Redemonstrated trace fluid versus linear atelectasis along the right minor fissure. Slight diffuse interstitial prominence is without significant interval change. No evidence of pneumothorax, significant pleural effusion, or overt pulmonary edema. The cardiomediastinal contour is unremarkable. No acute osseous findings are seen. Fusion hardware noted in the cervical spine. XR/XR chest 2V IMPRESSION: No new acute findings.
[2023-01-11 22:20] VITALS: BP 174/104; PULSE 98; RESP 18; TEMP 37.4; O2SAT 94; BMI 34.0
[2023-01-11 22:41] LABS: MANUAL DIFF FLAG NO
[2023-01-11 22:42] LABS: Basophils Absolute Auto 0.1 X10*3/uL (0.0-0.2); Eosinophils Absolute Auto 0.4 X10*3/uL (0.0-0.4); Hematocrit 46.8 % (42.0-52.0); Hemoglobin 15.5 g/dl (14.0-18.0); Imm Gran Abs Auto 0.03 X10*3/uL (0.00-0.03); Imm Gran Pct Auto 0.3 % (0.0-0.4); Lymphocytes Absolute Auto 2.6 X10*3/uL (1.2-4.9); Lymphocytes Percent Auto 24.2 % (20-40); Mean Corpuscular HGB Conc 33.1 g/dl (31.0-36.0); Mean Corpuscular Hemoglobin 29.1 pg (27.0-33.0); Mean Corpuscular Volume 87.8 fL (80.0-98.0); Mean Platelet Volume 9.5 fL (9.4-12.4); Monocytes Absolute Auto 1.1 X10*3/uL (0.1-1.2); Monocytes Percent Auto 10.7 % (2-11); Neutrophils Absolute Auto 6.4 x10*3/uL (2.0-8.3); Neutrophils Percent Auto 59.8 % (45-73); Platelet Count 245 X10*3/uL (160-400); Red Blood Count 5.33 X10*6/uL (4.60-5.80); Red Cell Distribution Width 13.1 % (11.0-16.0); White Blood Count 10.6 X10*3/uL (4.8-10.8)
[2023-01-11 22:53] LABS: Lactic Acid 1.2 mmol/L (0.5-2.0)
[2023-01-11 23:04] LABS: Alanine Aminotransferase 32 U/L (0-40); Albumin Level 4.3 g/dL (3.5-5.0); Alkaline Phosphatase 82 U/L (39-117); Anion Gap 13 (12-20); Aspartate Amino Transferase 27 U/L (5-37); Blood Urea Nitrogen 16 mg/dL (9-16); Calcium 9.5 mg/dL (8.4-10.2); Carbon Dioxide 30 mmol/L (22-29); Chloride 101 mmol/L (96-108); Creatinine Clr Calc Pharmacy 108.7; Estimated Glomerular Filt Rate > 60; Glucose Random 99 mg/dL (60-115); Potassium 4.3 mmol/L (3.3-5.1); Sodium 140 mmol/L (135-145); Total Protein 7.6 g/dL (6.5-8.0)
[2023-01-12 01:12] VITALS: BP 165/82; PULSE 94; RESP 17; TEMP 36.8; O2SAT 93
--- NOTE | 2023-01-12 01:59 | ECG_ITS ---
Test Reason : CHEST PAIN Blood Pressure : / mmHG Vent. Rate : 090 BPM Atrial Rate : 090 BPM P-R Int : 176 ms QRS Dur : 102 ms QT Int : 362 ms P-R-T Axes : 081 061 073 degrees QTc Int : 442 ms Sinus rhythm with Premature supraventricular complexes Nonspecific T wave abnormality Abnormal ECG When compared with ECG of 02-JAN-2023 00:17, Premature supraventricular complexes are now Present Referred By: Erick Li Electronically Signed By:ANGEL HANNAH
[2023-01-12] MEDS: ceFAZolin Sodium/Dextrose,Iso 2 GM/50 ML PIGGYBACK IV (02:47)
--- NOTE | 2023-01-12 02:52 | ED.GENADULT ---
HPI - General Adult General Chief complaint: General Medical Stated complaint: Needs IV therapy and fluid for infection per Dr Time Seen by Provider: 01/12/23 01:45 Source: patient Mode of arrival: ambulatory Limitations: no limitations History of Present Illness HPI narrative: 62-year-old male presents with cellulitic changes at all right lower extremity. Symptoms started 2-3 weeks ago. It started with mild redness and swelling. Has increased in severity. Denies any chest pain or shortness of breath. He does have a history of MRSA. Denies any fevers or chills. The pain is worse with palpation. He was seen by his primary care provider earlier today and was sent for to the hospital for intravenous antibiotics. Related Data Home Medications Medication Instructions Recorded Confirmed ibuprofen 800 mg tablet 800 mg PO TID 07/26/20 07/26/20 methadone 40 mg soluble tablet 85 mg PO DAILY 01/11/23 Previous Rx's Medication Instructions Recorded polyethylene glycol 3350 17 17 g PO DAILY #510 grams 04/04/22 gram/dose oral powder (Miralax) albuterol sulfate 90 mcg/actuation 2 puff inhalation Q4-6H PRN 11/28/22 aerosol inhaler (ProAir HFA) shortness of breath or wheezing #8.5 grams benzonatate 200 mg capsule 200 mg PO TID PRN cough #30 caps 11/28/22 Allergies Allergy/AdvReac Type Severity Reaction Status Date / Time hydrocodone [HYDROCODONE] Allergy Unknown RASH Verified 01/11/23 13:02 Influenza Virus Vaccines Allergy Unknown felt very Verified 01/11/23 13:02 sick latex [LATEX] Allergy Unknown UNKNOWN Verified 01/11/23 13:02 morphine Allergy Unknown stomach Verified 01/11/23 13:02 upset PMFSH Past Medical History Medical History Cervicalgia Constipation Degenerative cervical spinal stenosis Foraminal stenosis of cervical region Homeless Opiate abuse, continuous PTSD (post-traumatic stress disorder) Smoker Surgical History History of arthroscopy of left shoulder History of discectomy History of surgery Family History Family History Father Alzheimer's disease Diabetes mellitus Mother COPD (chronic obstructive pulmonary disease) Pleurisy Brother No problems noted. Sister Melanoma Son No problems noted. Son No problems noted. Social History Social History Alcohol intake: never Patient Tobacco Use Status: Former Tobacco user Cigarette Packs Per Day: 0.5 Cigarettes Per Day: 10.0 Smoked in Last 30 Days: Yes Use of substances other than those prescribed or required for medical reasons: Yes Substance Use Type: Marijuana Advance Directives: No Advance Directives Information Provided: No Physical Exam ED Vital Signs: Vital Signs - 24 hr 01/11/23 22:20 01/12/23 01:12 Temperature 99.3 F 98.3 F Pulse Rate 98 94 Respiratory Rate 18 17 Blood Pressure 174/104 H 165/82 H Pulse Oximetry 94 93 Oxygen Delivery Method Room Air Room Air BMI result Body Mass Index 34.0 GEN: Well developed, no acute distress, alert, oriented HEENT: Normocephalic, atraumatic, normal external ears, nose appears normal, no oropharyngeal edema or exudates Eyes: Normal to appearance Neck: Supple, no lymphadenopathy Respiratory: Talks in complete sentences, no respiratory distress, clear to auscultation bilaterally Cardiovascular: Regular rate and rhythm, no murmurs rubs or gallops Abdomen: Soft, nontender, nondistended, no guarding, no rebound Back: No CVA tenderness Extremities: No clubbing cyanosis or edema, significant erythematous changes to the right lower extremity all the way up to his groin Neurologic: No focal neurologic deficits, cranial nerves 2-12 intact, strength is 5/5 bilaterally Skin: No rash Course Course Course Narrative: 62-year-old male presents with extensive cellulitic changes the right lower extremity. Has a history of MRSA. Will place patient on vancomycin, check labs, blood cultures, lactic acid. Patient warranted admission given the extensive nature of his symptoms. Reevaluation(s) Reevaluation #1: Patient to be admitted Dr Cynthia milian Time: 03:22 Medications Administered Discontinued Medications Generic Name Dose Route Start Last Admin Trade Name Freq PRN Reason Stop Dose Admin Cefazolin Sodium/Dextrose 2 gm in 50 mls @ 100 mls/hr 01/12/23 02:03 01/12/23 02:47 Ancef IV 01/12/23 02:32 100 mls/hr ONCE ONE Administration Medical Decision Making Medical Decision Making MDM Narrative: 62-year-old male presents with cellulitis the right lower extremity. Patient denies any fevers, chills, sweats. The cellulitic changes are extensive. He denies any chest pain or shortness of breath. Patient did have an ultrasound of her lower extremity recently on 11/28/2022. At that time there is no evidence of DVT. Patient was sent for intravenous antibiotics by his primary care provider. Differential Diagnosis Differential Diagnoses: The differential diagnosis associated with the presentation includes (Cellulitis, DVT, stasis dermatitis) Cellulitis right lower extremity Consult Healthcare Provider Management of the patient was discussed with: Hospitalist Lab Data MDM Lab Attestation statement: I reviewed the patient's lab results. 01/11/23 22:36 01/11/23 22:36 Labs: Lab Results 01/11/23 01/11/23 01/11/23 Range/Units 22:36 22:36 22:36 WBC 10.6 (4.8-10.8) X10*3/uL RBC 5.33 (4.60-5.80) X10*6/uL Hgb 15.5 (14.0-18.0) g/dl Hct 46.8 (42.0-52.0) % MCV 87.8 (80.0-98.0) fL MCH 29.1 (27.0-33.0) pg MCHC 33.1 (31.0-36.0) g/dl RDW 13.1 (11.0-16.0) % Plt Count 245 (160-400) X10*3/uL MPV 9.5 (9.4-12.4) fL Immature Gran % (Auto) 0.3 (0.0-0.4) % Neut % (Auto) 59.8 (45-73) % Lymph % (Auto) 24.2 (20-40) % [place] % (Auto) 10.7 (2-11) % Eos % (Auto) 4.0 (0-4) % Baso % (Auto) 1.0 (0-2) % Lymph # (Auto) 2.6 (1.2-4.9) X10*3/uL [place] # (Auto) 1.1 (0.1-1.2) X10*3/uL Eos # (Auto) 0.4 (0.0-0.4) X10*3/uL Baso # (Auto) 0.1 (0.0-0.2) X10*3/uL Abs Immat Gran (auto) 0.03 (0.00-0.03) X10*3/uL Absolute Neuts (auto) 6.4 (2.0-8.3) x10*3/uL Absolute Nucleated RBC 0.000 (0.0-0.012) X10*3/uL Nucleated RBC % (auto) 0.0 (0.0-0.2) /100WBC Sodium 140 (135-145) mmol/L Potassium 4.3 (3.3-5.1) mmol/L Chloride 101 (96-108) mmol/L Carbon Dioxide 30 H (22-29) mmol/L Anion Gap 13 (12-20) BUN 16 (9-16) mg/dL Creatinine 0.97 (0.5-1.4) mg/dL Estim Creat Clear Calc 108.7 Estimated GFR > 60 Random Glucose 99 (60-115) mg/dL Lactic Acid 1.2 (0.5-2.0) mmol/L Calcium 9.5 (8.4-10.2) mg/dL Total Bilirubin 1.0 (0.0-1.0) mg/dL AST 27 (5-37) U/L ALT 32 (0-40) U/L Alkaline Phosphatase 82 (39-117) U/L Total Protein 7.6 (6.5-8.0) g/dL Albumin 4.3 (3.5-5.0) g/dL COVID-19 (JOAN) (Negative) COVID-19 Clin Com 01/12/23 01/12/23 Range/Units 02:38 02:38 WBC (4.8-10.8) X10*3/uL RBC (4.60-5.80) X10*6/uL Hgb (14.0-18.0) g/dl Hct (42.0-52.0) % MCV (80.0-98.0) fL MCH (27.0-33.0) pg MCHC (31.0-36.0) g/dl RDW (11.0-16.0) % Plt Count (160-400) X10*3/uL MPV (9.4-12.4) fL Immature Gran % (Auto) (0.0-0.4) % Neut % (Auto) (45-73) % Lymph % (Auto) (20-40) % [place] % (Auto) (2-11) % Eos % (Auto) (0-4) % Baso % (Auto) (0-2) % Lymph # (Auto) (1.2-4.9) X10*3/uL [place] # (Auto) (0.1-1.2) X10*3/uL Eos # (Auto) (0.0-0.4) X10*3/uL Baso # (Auto) (0.0-0.2) X10*3/uL Abs Immat Gran (auto) (0.00-0.03) X10*3/uL Absolute Neuts (auto) (2.0-8.3) x10*3/uL Absolute Nucleated RBC (0.0-0.012) X10*3/uL Nucleated RBC % (auto) (0.0-0.2) /100WBC Sodium (135-145) mmol/L Potassium (3.3-5.1) mmol/L Chloride (96-108) mmol/L Carbon Dioxide (22-29) mmol/L Anion Gap (12-20) BUN (9-16) mg/dL Creatinine (0.5-1.4) mg/dL Estim Creat Clear Calc Estimated GFR Random Glucose (60-115) mg/dL Lactic Acid 1.4 (0.5-2.0) mmol/L Calcium (8.4-10.2) mg/dL Total Bilirubin (0.0-1.0) mg/dL AST (5-37) U/L ALT (0-40) U/L Alkaline Phosphatase (39-117) U/L Total Protein (6.5-8.0) g/dL Albumin (3.5-5.0) g/dL COVID-19 (JOAN) Negative (Negative) COVID-19 Clin Com See Note Independent Interpretation I performed an independent interpretation of an: EKG (Normal sinus rhythm heart rate 90, nonspecific T-wave changes, normal intervals) and Plain X-Ray (Chest: No acute cardiopulmonary disease) External Record Review External record reviewed: Prior outpatient radiology ( US/US venous duplex LE RT IMPRESSION: No DVT demonstrated in the right lower extremity. Dictated By:Jonny Ashraf MDSigned By:<Electronically signed by Jonny Ashraf MD in [place]>11/28/22 0701) Tests considered The following testing was considered but not selected: Ultrasound lower extremity Prescription Management I considered prescription management with: Antibiotic Chronic Conditions Patient?s care impacted by: Other (MRSA) Discharge Plan Discharge Clinical Impression: Cellulitis and abscess of right leg Patient Disposition: Admitted As Inpatient
[2023-01-12 02:58] LABS: COVID-19 Test Negative (Negative); IDNOW Serial# BCCEAD1C
[2023-01-12 03:04] LABS: Lactic Acid 1.4 mmol/L (0.5-2.0)
--- NOTE | 2023-01-12 03:28 | PM.EVENT ---
Event Note Date of Service: 01/12/23 Event Note: patient seen and examined. complaining of several weeks worsening bilateral lower extremity edema and erythema. denies fever, chills, completed doxycyline course without improvement. reports 50lbs weight gain over past few months. in ED no leukocytosis, afebrile, erythema bilateral. does not appear to be consistent with cellulitis, most likely stasis dermatitis, recommend local care, compression, elevation, weight loss. Time Spent With Patient Time: Total time managing care of this patient today ____ minutes.
[2023-01-12 04:02] VITALS: BP 129/80; PULSE 91; RESP 17; TEMP 36.7; O2SAT 94
[2023-01-12] MEDS: Doxycycline Monohydrate 100 MG CAPSULE PO (04:12)
--- NOTE | 2023-01-12 04:18 | PC.NURSE ---
per dr schwartz pt okay to discharge. vancomycin antibiotic not held per dr schwartz. medication held documented in nov. pt medicated with PO doxycycline. pt tolerated po well. pt ambulatory at discharge. vss. pt provided with discharge packet. pt verbalized understanding of discharge plan
== END 2023-01-12 04:22 | disposition home or self-care (01) ==
PROVIDERS: Emergency Provider Emergency Medicine; PCP Nurse Practitioner Family
DX: I87.2 Venous insufficiency (chronic) (peripheral) (principal); L02.415 Cutaneous abscess of right lower limb; Z20.822 Contact with and (suspected) exposure to COVID-19; F11.20 Opioid dependence, uncomplicated; F17.200 Nicotine dependence, unspecified, uncomplicated
CPT/HCPCS: 36415; 71046; 80053; 83605; 85025; 87040; 87635; 93005; 96365; 99284; J0690

== ENCOUNTER 2023-02-06 12:20 | Outpatient (REF) | payer MEDICARE, SELFPAY ==
[2023-02-06 13:44] LABS: MANUAL DIFF FLAG NO
[2023-02-06 13:48] LABS: Basophils Absolute Auto 0.1 X10*3/uL (0.0-0.2); Basophils Percent Auto 1.5 % (0-2); Eosinophils Absolute Auto 0.4 X10*3/uL (0.0-0.4); Eosinophils Percent Auto 4.9 % (0-4); Hematocrit 45.2 % (42.0-52.0); Hemoglobin 14.8 g/dl (14.0-18.0); Imm Gran Abs Auto 0.01 X10*3/uL (0.00-0.03); Imm Gran Pct Auto 0.1 % (0.0-0.4); Lymphocytes Absolute Auto 1.8 X10*3/uL (1.2-4.9); Lymphocytes Percent Auto 22.5 % (20-40); Mean Corpuscular HGB Conc 32.7 g/dl (31.0-36.0); Mean Corpuscular Hemoglobin 29.2 pg (27.0-33.0); Mean Corpuscular Volume 89.2 fL (80.0-98.0); Mean Platelet Volume 10.1 fL (9.4-12.4); Monocytes Absolute Auto 0.8 X10*3/uL (0.1-1.2); Monocytes Percent Auto 9.6 % (2-11); Neutrophils Absolute Auto 4.9 x10*3/uL (2.0-8.3); Neutrophils Percent Auto 61.4 % (45-73); Platelet Count 249 X10*3/uL (160-400); Red Blood Count 5.07 X10*6/uL (4.60-5.80); Red Cell Distribution Width 13.2 % (11.0-16.0)
== END 2023-02-06 12:21 | disposition home or self-care (01) ==
LOC: HO.HMGCLDS 12:20
PROVIDERS: PCP Nurse Practitioner Family; Visit Provider Physician Assistant Medical
DX: L03.90 Cellulitis, unspecified (principal)
CPT/HCPCS: 36415; 85025

== ENCOUNTER 2023-08-04 16:31 | Emergency (ER) | payer MEDICARE, SELFPAY ==
[2023-08-04 16:33] VITALS: BP 171/88; PULSE 90; RESP 20; TEMP 36.8; O2SAT 95; BMI 36.8
--- NOTE | 2023-08-04 16:33 | ED_ITS ---
HPI - General Adult General Chief complaint: General Medical Stated complaint: sinus infection, leg infection ? Time Seen by Provider: 08/04/23 19:10 Related Data Home Medications Medication Instructions Recorded Confirmed ibuprofen 800 mg tablet 800 mg PO TID 07/26/20 01/16/23 methadone 40 mg soluble tablet 85 mg PO DAILY 01/11/23 01/16/23 Previous Rx's Medication Instructions Recorded polyethylene glycol 3350 17 17 g PO DAILY #510 grams 04/04/22 gram/dose oral powder (Miralax) albuterol sulfate 90 mcg/actuation 2 puff inhalation Q4-6H PRN 11/28/22 aerosol inhaler (ProAir HFA) shortness of breath or wheezing #8.5 grams benzonatate 200 mg capsule 200 mg PO TID PRN cough #30 caps 11/28/22 doxycycline hyclate 100 mg tablet 100 mg PO BID 10 days #20 tabs 01/16/23 sulfamethoxazole 800 1 tab PO BID 10 days #20 tabs 02/06/23 mg-trimethoprim 160 mg tablet (Bactrim DS) albuterol sulfate 90 mcg/actuation 2 puff inhalation Q4-6H PRN 08/04/23 aerosol inhaler (ProAir HFA) shortness of breath or wheezing #8.5 grams amoxicillin 875 mg-potassium 1 tab PO Q12H 7 days #14 tabs 08/04/23 clavulanate 125 mg tablet tiotropium bromide 2.5 2 inh inhalation BEDTIME #4 grams 08/04/23 mcg/actuation mist for inhalation (Spiriva Respimat) Allergies Allergy/AdvReac Type Severity Reaction Status Date / Time hydrocodone [HYDROCODONE] Allergy Unknown RASH Verified 02/06/23 12:00 Influenza Virus Vaccines Allergy Unknown felt very Verified 02/06/23 12:00 sick latex [LATEX] Allergy Unknown UNKNOWN Verified 02/06/23 12:00 morphine Allergy Unknown stomach Verified 02/06/23 12:00 upset PMFSH Past Medical History Medical History Opiate abuse, continuous PTSD (post-traumatic stress disorder) Constipation Homeless Smoker Foraminal stenosis of cervical region Degenerative cervical spinal stenosis Cervicalgia Surgical History History of surgery History of arthroscopy of left shoulder History of discectomy Family History Family History Father Alzheimer's disease Diabetes mellitus Mother COPD (chronic obstructive pulmonary disease) Pleurisy Brother No problems noted. Sister Melanoma Son No problems noted. Son No problems noted. Social History Social History Alcohol intake: never Patient Tobacco Use Status: Former Tobacco user Cigarette Packs Per Day: 0.5 Cigarettes Per Day: 10.0 Substance Use Type: Marijuana Advance Directives: No Advance Directives Information Provided: No Physical Exam ED Vital Signs: BMI result Body Mass Index 36.8 Course Course Course Narrative: RME performed by Kalpana Altman PA-C. Patient is a 63 year old assigned male at presenting to the emergency department with a sinus infection and cellulitis of the right leg. Labs and swabs ordered. Patient placed back in the waiting room pending room availability and results. Patient was seen and dispositioned by Dr. Cruz. Please refer to his completed note from 08/04/2023. Medications Administered Discontinued Medications Generic Name Dose Route Start Last Admin Trade Name Freq PRN Reason Stop Dose Admin Amoxicillin/Clavulanate Potassium 875 mg 08/04/23 19:24 08/04/23 20:06 Amoxicillin/Potassium Clav 875 Mg Tablet PO 08/04/23 19:25 875 mg ONCE ONE Administration Medical Decision Making Lab Data 08/04/23 17:25 08/04/23 17:25 Labs: Lab Results 08/04/23 Range/Units 17:25 WBC 8.9 (4.8-10.8) X10*3/uL RBC 5.09 (4.60-5.80) X10*6/uL Hgb 14.9 (14.0-18.0) g/dl Hct 45.6 (42.0-52.0) % MCV 89.6 (80.0-98.0) fL MCH 29.3 (27.0-33.0) pg MCHC 32.7 (31.0-36.0) g/dl RDW 12.6 (11.0-16.0) % Plt Count 245 (160-400) X10*3/uL MPV 9.9 (9.4-12.4) fL Immature Gran % (Auto) 0.1 (0.0-0.4) % Neut % (Auto) 58.5 (45-73) % Lymph % (Auto) 22.0 (20-40) % [place] % (Auto) 11.4 H (2-11) % Eos % (Auto) 6.8 H (0-4) % Baso % (Auto) 1.2 (0-2) % Lymph # (Auto) 2.0 (1.2-4.9) X10*3/uL [place] # (Auto) 1.0 (0.1-1.2) X10*3/uL Eos # (Auto) 0.6 H (0.0-0.4) X10*3/uL Baso # (Auto) 0.1 (0.0-0.2) X10*3/uL Abs Immat Gran (auto) 0.01 (0.00-0.03) X10*3/uL Absolute Neuts (auto) 5.2 (2.0-8.3) x10*3/uL Absolute Nucleated RBC 0.000 (0.0-0.012) X10*3/uL Nucleated RBC % (auto) 0.0 (0.0-0.2) /100WBC ESR 16 H (0-15) MM/HR Sodium 141 (135-145) mmol/L Potassium 3.8 (3.3-5.1) mmol/L Chloride 98 (96-108) mmol/L Carbon Dioxide 33 H (22-29) mmol/L Anion Gap 14 (12-20) BUN 13 (9-16) mg/dL Creatinine 0.93 (0.5-1.4) mg/dL Estim Creat Clear Calc 116.5 Estimated GFR > 60 Random Glucose 101 (60-115) mg/dL Lactic Acid 1.1 (0.5-2.0) mmol/L Calcium 9.5 (8.4-10.2) mg/dL Magnesium 2.2 (1.6-2.6) mg/dL Total Bilirubin 0.7 (0.0-1.0) mg/dL AST 23 (5-37) U/L ALT 22 (0-40) U/L Alkaline Phosphatase 75 (39-117) U/L C-Reactive Protein 2.30 H (< or = 0.50) mg/dL Total Protein 7.8 (6.5-8.0) g/dL Albumin 4.2 (3.5-5.0) g/dL Influenza Type A (PCR) NEGATIVE (Negative) Influenza Type B (PCR) NEGATIVE (Negative) RSV RNA Qual (PCR) NEGATIVE (Negative) SARS-CoV-2 RNA (RT-PCR) NEGATIVE (Negative) S. pyogenes GrpA KASSIE Negative (Negative) Discharge Plan Discharge Clinical Impression: Sinusitis, Chronic stasis dermatitis Patient Disposition: Home, Self-Care Instructions: Sinusitis (ED) Additional Instructions: Your blood work was unremarkable except for elevation in your inflammatory markers. Your exam is consistent with a right maxillary sinus infection. Your leg swelling and redness is consistent with chronic stasis dermatitis and I do not think you have an infection of your legs at this time. Take Augmentin 875/125, 1 pill every 12 hours for 7 days to treat her sinus infection. Use the Spiriva and ProAir inhalers as prescribed. Follow-up with your doctor in 2 days. Please return to the emergency department if your symptoms get worse or if you develop any symptoms that are concerning to you. Prescriptions: New amoxicillin-pot clavulanate 875-125 mg tablet 1 tab PO Q12H 7 Days Qty: 14 0RF Spiriva Respimat 2.5 mcg/actuation mist 2 inh inhalation BEDTIME Qty: 4 0RF albuterol sulfate [ProAir HFA] 90 mcg/actuation HFA aerosol inhaler 2 puff inhalation Q4-6H PRN (Reason: shortness of breath or wheezing) Qty: 8.5 0RF No Action polyethylene glycol 3350 [Miralax] 17 gram/dose powder 17 g PO DAILY Qty: 510 0RF benzonatate 200 mg capsule 200 mg PO TID PRN (Reason: cough) Qty: 30 0RF albuterol sulfate [ProAir HFA] 90 mcg/actuation HFA aerosol inhaler 2 puff inhalation Q4-6H PRN (Reason: shortness of breath or wheezing) Qty: 8.5 2RF ibuprofen 800 mg tablet 800 mg PO TID sulfamethoxazole-trimethoprim [Bactrim DS] 800-160 mg tablet 1 tab PO BID 10 Days Qty: 20 0RF methadone 40 mg tablet,soluble 85 mg PO DAILY doxycycline hyclate 100 mg tablet 100 mg PO BID 10 Days Qty: 20 0RF Interventions: ED Discharge Assessment Last Done: 08/04/23 20:07 Discharge Date/Time: 08/04/23 20:08
[2023-08-04 17:31] LABS: MANUAL DIFF FLAG NO
[2023-08-04 17:33] LABS: Basophils Absolute Auto 0.1 X10*3/uL (0.0-0.2); Basophils Percent Auto 1.2 % (0-2); Eosinophils Absolute Auto 0.6 X10*3/uL (0.0-0.4); Eosinophils Percent Auto 6.8 % (0-4); Hematocrit 45.6 % (42.0-52.0); Hemoglobin 14.9 g/dl (14.0-18.0); Imm Gran Abs Auto 0.01 X10*3/uL (0.00-0.03); Imm Gran Pct Auto 0.1 % (0.0-0.4); Mean Corpuscular HGB Conc 32.7 g/dl (31.0-36.0); Mean Corpuscular Hemoglobin 29.3 pg (27.0-33.0); Mean Corpuscular Volume 89.6 fL (80.0-98.0); Mean Platelet Volume 9.9 fL (9.4-12.4); Monocytes Percent Auto 11.4 % (2-11); Neutrophils Absolute Auto 5.2 x10*3/uL (2.0-8.3); Neutrophils Percent Auto 58.5 % (45-73); Platelet Count 245 X10*3/uL (160-400); Red Blood Count 5.09 X10*6/uL (4.60-5.80); Red Cell Distribution Width 12.6 % (11.0-16.0); White Blood Count 8.9 X10*3/uL (4.8-10.8)
[2023-08-04 17:43] LABS: IDNOW Serial# 08D9AD1C; Lactic Acid 1.1 mmol/L (0.5-2.0); Strep A Nucleic Acid Negative (Negative)
[2023-08-04 17:48] LABS: Alanine Aminotransferase 22 U/L (0-40); Albumin Level 4.2 g/dL (3.5-5.0); Alkaline Phosphatase 75 U/L (39-117); Anion Gap 14 (12-20); Aspartate Amino Transferase 23 U/L (5-37); Bilirubin Total 0.7 mg/dL (0.0-1.0); Blood Urea Nitrogen 13 mg/dL (9-16); Calcium 9.5 mg/dL (8.4-10.2); Carbon Dioxide 33 mmol/L (22-29); Chloride 98 mmol/L (96-108); Creatinine Clr Calc Pharmacy 116.5; Estimated Glomerular Filt Rate > 60; Glucose Random 101 mg/dL (60-115); Magnesium 2.2 mg/dL (1.6-2.6); Potassium 3.8 mmol/L (3.3-5.1); Sodium 141 mmol/L (135-145); Total Protein 7.8 g/dL (6.5-8.0)
[2023-08-04 18:11] LABS: Influenza A PCR NEGATIVE (Negative); Influenza B PCR NEGATIVE (Negative); Resp Syncy Virus RNA Qual PCR NEGATIVE (Negative); SARS COV2 PCR INHOUSE NEGATIVE (Negative)
[2023-08-04 18:35] LABS: Erythrocyte Sedimentation Rate 16 MM/HR (0-15)
--- NOTE | 2023-08-04 19:25 | ED_ITS ---
HPI - General Adult General Chief complaint: General Medical Stated complaint: sinus infection, leg infection ? Time Seen by Provider: 08/04/23 19:10 Source: patient Mode of arrival: ambulatory Limitations: no limitations History of Present Illness HPI narrative: 63-year-old male with history of opiate abuse, PTSD, constipation, COPD, prediabetes, eczema who presents emergency department for evaluation of sinus infection. Patient states that he was helping a friend with drywall several days ago and since that time he has had pain in the right side of his face. The patient points to his maxillary sinus area. He states that the pain is worse with bending over. Describes it as a fullness. He states he feels similar to his sinus infections in the past. He denied fever or chills. He states that his chronic swelling and redness of his lower extremities he feels that his right leg is little more swollen than his left. He states he has had multiple ultrasounds of the leg and has not had a DVT. Patient states he has also ran out of his Spiriva inhaler and his albuterol ProAir inhaler. Related Data Home Medications Medication Instructions Recorded Confirmed ibuprofen 800 mg tablet 800 mg PO TID 07/26/20 01/16/23 methadone 40 mg soluble tablet 85 mg PO DAILY 01/11/23 01/16/23 Previous Rx's Medication Instructions Recorded polyethylene glycol 3350 17 17 g PO DAILY #510 grams 04/04/22 gram/dose oral powder (Miralax) albuterol sulfate 90 mcg/actuation 2 puff inhalation Q4-6H PRN 11/28/22 aerosol inhaler (ProAir HFA) shortness of breath or wheezing #8.5 grams benzonatate 200 mg capsule 200 mg PO TID PRN cough #30 caps 11/28/22 doxycycline hyclate 100 mg tablet 100 mg PO BID 10 days #20 tabs 01/16/23 sulfamethoxazole 800 1 tab PO BID 10 days #20 tabs 02/06/23 mg-trimethoprim 160 mg tablet (Bactrim DS) albuterol sulfate 90 mcg/actuation 2 puff inhalation Q4-6H PRN 08/04/23 aerosol inhaler (ProAir HFA) shortness of breath or wheezing #8.5 grams amoxicillin 875 mg-potassium 1 tab PO Q12H 7 days #14 tabs 08/04/23 clavulanate 125 mg tablet tiotropium bromide 2.5 2 inh inhalation BEDTIME #4 grams 08/04/23 mcg/actuation mist for inhalation (Spiriva Respimat) Allergies Allergy/AdvReac Type Severity Reaction Status Date / Time hydrocodone [HYDROCODONE] Allergy Unknown RASH Verified 02/06/23 12:00 Influenza Virus Vaccines Allergy Unknown felt very Verified 02/06/23 12:00 sick latex [LATEX] Allergy Unknown UNKNOWN Verified 02/06/23 12:00 morphine Allergy Unknown stomach Verified 02/06/23 12:00 upset Review of Systems 2 Review of Systems: Yes all other systems are reviewed and are negative [facility] Past Medical History [facility] Narrative: Social history: He denies tobacco, alcohol and drug use. Medical History Opiate abuse, continuous PTSD (post-traumatic stress disorder) Constipation Homeless Smoker Foraminal stenosis of cervical region Degenerative cervical spinal stenosis Cervicalgia Surgical History History of surgery History of arthroscopy of left shoulder History of discectomy Family History Family History Father Alzheimer's disease Diabetes mellitus Mother COPD (chronic obstructive pulmonary disease) Pleurisy Brother No problems noted. Sister Melanoma Son No problems noted. Son No problems noted. Social History Social History Alcohol intake: never Patient Tobacco Use Status: Former Tobacco user Cigarette Packs Per Day: 0.5 Cigarettes Per Day: 10.0 Substance Use Type: Marijuana Advance Directives: No Advance Directives Information Provided: No Physical Exam ED Vital Signs: Vital Signs - 24 hr 08/04/23 16:33 Temperature 98.2 F Pulse Rate 90 Respiratory Rate 20 Blood Pressure 171/88 H Pulse Oximetry 95 Oxygen Delivery Method Room Air BMI result Body Mass Index 36.8 Vital signs were normal Exam General: Awake, alert in no distress Head: Normocephalic, atraumatic EENT: PERRL, Lids normal, sclera normal, conjunctiva normal, nose normal , ears normal, throat without erythema or exudates, patient has tenderness palpation of his right maxillary sinus, there is no swelling or erythema Lung: breath sounds symmetric, no wheezing, rales or rhonchi Chest: symmetric movement, nontender Heart: regular rate and rhythm, normal S1, S2 no murmurs or rubs Extremities: Patient has swelling of both lower extremities with the right being slightly more swollen than left, this is nonpitting edema, the patient has very dry skin with erythema to both lower extremities right greater than left, no increased warmth Psych: Pleasant, cooperative Medical Decision Making Medical Decision Making MDM Narrative: 63-year-old male with history of opiate abuse, PTSD, constipation, COPD, prediabetes, eczema who presents emergency department for evaluation of sinus infection. Examination did reveal right-sided tenderness over the maxillary sinus and lower extremities that are consistent with chronic stasis dermatitis. Following evaluation was ordered: CBC, CMP, CRP, ESR 19:35 My interpretation patient's laboratory evaluation as follows: CBC and CMP were normal. CRP was elevated 2.90. ESR is elevated 16. Patient's findings are consistent with right maxillary sinusitis Patient started on Augmentin 875/125 q.12 hours x7 days he was given his 1st dose in the emergency department. Patient is also requesting refill of his Spiriva and albuterol ProAir for his COPD and he was given these prescriptions. Differential Diagnosis Differential Diagnoses: The differential diagnosis associated with the presentation includes Differential diagnosis includes was not limited to sinusitis, cellulitis, chronic stasis dermatitis Admission/Observation Consideration of admission/observation: Escalation of care including admission/observation considered Lab Data [facility] Lab Attestation statement: I reviewed the patient's lab results. See MDM above 08/04/23 17:25 08/04/23 17:25 Labs: Lab Results 08/04/23 Range/Units 17:25 WBC 8.9 (4.8-10.8) X10*3/uL RBC 5.09 (4.60-5.80) X10*6/uL Hgb 14.9 (14.0-18.0) g/dl Hct 45.6 (42.0-52.0) % MCV 89.6 (80.0-98.0) fL MCH 29.3 (27.0-33.0) pg MCHC 32.7 (31.0-36.0) g/dl RDW 12.6 (11.0-16.0) % Plt Count 245 (160-400) X10*3/uL MPV 9.9 (9.4-12.4) fL Immature Gran % (Auto) 0.1 (0.0-0.4) % Neut % (Auto) 58.5 (45-73) % Lymph % (Auto) 22.0 (20-40) % [place] % (Auto) 11.4 H (2-11) % Eos % (Auto) 6.8 H (0-4) % Baso % (Auto) 1.2 (0-2) % Lymph # (Auto) 2.0 (1.2-4.9) X10*3/uL [place] # (Auto) 1.0 (0.1-1.2) X10*3/uL Eos # (Auto) 0.6 H (0.0-0.4) X10*3/uL Baso # (Auto) 0.1 (0.0-0.2) X10*3/uL Abs Immat Gran (auto) 0.01 (0.00-0.03) X10*3/uL Absolute Neuts (auto) 5.2 (2.0-8.3) x10*3/uL Absolute Nucleated RBC 0.000 (0.0-0.012) X10*3/uL Nucleated RBC % (auto) 0.0 (0.0-0.2) /100WBC ESR 16 H (0-15) MM/HR Sodium 141 (135-145) mmol/L Potassium 3.8 (3.3-5.1) mmol/L Chloride 98 (96-108) mmol/L Carbon Dioxide 33 H (22-29) mmol/L Anion Gap 14 (12-20) BUN 13 (9-16) mg/dL Creatinine 0.93 (0.5-1.4) mg/dL Estim Creat Clear Calc 116.5 Estimated GFR > 60 Random Glucose 101 (60-115) mg/dL Lactic Acid 1.1 (0.5-2.0) mmol/L Calcium 9.5 (8.4-10.2) mg/dL Magnesium 2.2 (1.6-2.6) mg/dL Total Bilirubin 0.7 (0.0-1.0) mg/dL AST 23 (5-37) U/L ALT 22 (0-40) U/L Alkaline Phosphatase 75 (39-117) U/L C-Reactive Protein 2.30 H (< or = 0.50) mg/dL Total Protein 7.8 (6.5-8.0) g/dL Albumin 4.2 (3.5-5.0) g/dL Influenza Type A (PCR) NEGATIVE (Negative) Influenza Type B (PCR) NEGATIVE (Negative) RSV RNA Qual (PCR) NEGATIVE (Negative) SARS-CoV-2 RNA (RT-PCR) NEGATIVE (Negative) S. pyogenes GrpA KASSIE Negative (Negative) Prescription Management I considered prescription management with: Antibiotic Chronic Conditions Patient?s care impacted by: Diabetes Discharge Plan Discharge Clinical Impression: Chronic stasis dermatitis Sinusitis Qualifiers: Sinusitis location: maxillary Chronicity: acute Recurrence: non-recurrent Q ualified Code(s): J01.00 - Acute maxillary sinusitis, unspecified Patient Disposition: Home, Self-Care Instructions: Sinusitis (ED) Additional Instructions: Your blood work was unremarkable except for elevation in your inflammatory markers. Your exam is consistent with a right maxillary sinus infection. Your leg swelling and redness is consistent with chronic stasis dermatitis and I do not think you have an infection of your legs at this time. Take Augmentin 875/125, 1 pill every 12 hours for 7 days to treat her sinus infection. Use the Spiriva and ProAir inhalers as prescribed. Follow-up with your doctor in 2 days. Please return to the emergency department if your symptoms get worse or if you develop any symptoms that are concerning to you. Prescriptions: New amoxicillin-pot clavulanate 875-125 mg tablet 1 tab PO Q12H 7 Days Qty: 14 0RF Spiriva Respimat 2.5 mcg/actuation mist 2 inh inhalation BEDTIME Qty: 4 0RF albuterol sulfate [ProAir HFA] 90 mcg/actuation HFA aerosol inhaler 2 puff inhalation Q4-6H PRN (Reason: shortness of breath or wheezing) Qty: 8.5 0RF No Action polyethylene glycol 3350 [Miralax] 17 gram/dose powder 17 g PO DAILY Qty: 510 0RF benzonatate 200 mg capsule 200 mg PO TID PRN (Reason: cough) Qty: 30 0RF albuterol sulfate [ProAir HFA] 90 mcg/actuation HFA aerosol inhaler 2 puff inhalation Q4-6H PRN (Reason: shortness of breath or wheezing) Qty: 8.5 2RF ibuprofen 800 mg tablet 800 mg PO TID sulfamethoxazole-trimethoprim [Bactrim DS] 800-160 mg tablet 1 tab PO BID 10 Days Qty: 20 0RF methadone 40 mg tablet,soluble 85 mg PO DAILY doxycycline hyclate 100 mg tablet 100 mg PO BID 10 Days Qty: 20 0RF
[2023-08-04] MEDS: Amoxicillin/Potassium Clav 875 MG TABLET PO (20:06)
== END 2023-08-04 20:08 | disposition home or self-care (01) ==
PROVIDERS: Physician Assistant Medical; Emergency Provider Emergency Medicine Emergency Medical Services
DX: J32.9 Chronic sinusitis, unspecified (principal); I87.2 Venous insufficiency (chronic) (peripheral); L03.115 Cellulitis of right lower limb; Z20.822 Contact with and (suspected) exposure to COVID-19; Z20.828 Contact with and (suspected) exposure to other viral communicable diseases
CPT/HCPCS: 0241U; 80053; 83605; 83735; 85025; 85652; 86140; 87040; 87651; 99282; 99283

== ENCOUNTER 2023-12-07 02:28 | Emergency (ER) | payer MEDICARE, SELFPAY ==
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
--- NOTE | ~2023-12-07 | CT_ITS ---
EXAMINATION: CT HEAD WITHOUT CONTRAST CT CERVICAL SPINE WITHOUT CONTRAST CLINICAL INFORMATION: Trauma. Pain. COMPARISON: Correlation made with MRI of the cervical spine performed 12/05/2018. TECHNIQUE: Contiguous axial imaging was performed through the head and cervical spine without intravenous administration of contrast. Sagittal and coronal reformatted images also obtained. This CT examination was performed using dose optimization techniques as appropriate, variously including the following: *Automated exposure control *Adjustment of mA and/or kV according to patient size (this includes techniques or standardized protocols for targeted exams where dose is matched to indication/reason for exam; i.e. extremities or head) *Use of iterative reconstruction technique DLP: 1527 mGy-cm FINDINGS: The lateral, third and fourth ventricles are normally outlined. The cortical sulci and basal cisterns are normally outlined as well. There is mild to moderate bilateral periventricular and central white matter diminished attenuation. There is no acute territorial defect, hemorrhage or midline shift. The extra-axial spaces are unremarkable. Calvarium: The calvarium is intact. Maxillofacial sinuses and mastoids: There is a right maxillary sinus opacity. There are also ethmoid sinus opacities. The mastoids are clear. Cervical spine: There is mild reversal of the expected cervical spine curvature. There is minimal anterolisthesis to C2 over C3. There is anterior fusion C4-C5-C6. There is moderate degenerative change C3-C4, C6-C7 and C7-T1 with loss of disc space, endplate change and mild posterior osteophytes associated with mild to moderate diffuse facet osteoarthritic hypertrophic change with multilevel mild spinal canal and [id number] neuroforaminal narrowing. There is no acute fracture. Soft tissues are unremarkable. The visualized upper lung spann are clear. CT/CT head/brain wo IV con IMPRESSION: HEAD CT: 1. No acute intracranial abnormality. 2. Mild to moderate bilateral periventricular and central white matter diminished attenuation most commonly from chronic small vessel ischemic disease. 3. Ethmoid and right maxillary sinus disease. CERVICAL SPINE: Postoperative and degenerative change of the cervical spine. No acute osseous abnormality identified.
[2023-12-07 02:40] VITALS: BP 154/82; PULSE 87; RESP 18; TEMP 36.9; O2SAT 92; BMI 34.4
--- NOTE | 2023-12-07 05:10 | PC.NURSE ---
confirmed with pt he is not on blood thinners, pt states he has a titanium plate due to bad disks. pt came in due to headache, neck pain on right side, blurry vision, pt also has sinus congestion and is looking for his inhaler script due to he has no primary provider.
[2023-12-07 05:50] VITALS: BP 131/69; PULSE 78; RESP 16; TEMP 36.7; O2SAT 95
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
--- NOTE | 2023-12-07 06:34 | PC.NURSE ---
pt A&Ox4, skin p/w/d , speaking clear full sentences, no neuro deficits noted. Waiting for CT scan results.
[2023-12-07 06:52] VITALS: BP 131/69; PULSE 78; RESP 16; TEMP 36.6; O2SAT 100
== END 2023-12-07 06:53 | disposition home or self-care (01) ==
PROVIDERS: Emergency Provider Emergency Medicine
DX: S06.0X0A Concussion without loss of consciousness, initial encounter (principal); J32.9 Chronic sinusitis, unspecified; Z76.0 Encounter for issue of repeat prescription; J44.9 Chronic obstructive pulmonary disease, unspecified; Y00.XXXA Assault by blunt object, initial encounter; Y93.9 Activity, unspecified; Y92.9 Unspecified place or not applicable; Y99.9 Unspecified external cause status
CPT/HCPCS: 70450; 72125; 99284

== ENCOUNTER 2024-10-01 18:55 | Emergency (ER) | payer MEDICARE, SELFPAY ==
--- NOTE | ~2024-10-01 | XR_ITS ---
CLINICAL HISTORY: cough, SOB 2 view chest x-ray. Comparison: 01/12/2023 Findings: Lungs are clear without acute infiltrates. Stable chronic interstitial fibrosis. No pneumothorax. Heart size normal. No acute bony abnormalities. Impression: No acute processes This document has been electronically signed by: Tripp Soliz MD on 10/01/2024 20:54:07
--- NOTE | 2024-10-01 19:28 | ED.GENADULT ---
HPI - General Adult General Chief complaint: Upper Respiratory Symptoms Stated complaint: Sinus/congestion Time Seen by Provider: 10/01/24 20:12 Source: patient Mode of arrival: ambulatory Limitations: no limitations History of Present Illness ED Provider: TELMA NOLAND narrative: 64 yo male with PMH of COPD not on home O2 does not have a consistent PCP so he doesn't have INH or nebs. 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 His roommate has been sick for 2 days. He has had a cough, wheezing, chills and sweats. He came in hypoxic upper 80s MD complaint: URI Onset (ago): day(s) (2) Location: chest Radiation: non-radiation Severity: moderate Relieving factors: none Exacerbating factors: movement Associated symptoms: cough, fever/chills, loss of appetite, malaise, shortness of breath and weakness Treatments prior to arrival: none Related Data Home Medications ?Medication ?Instructions ?Recorded ?Confirmed ibuprofen 800 mg tablet 800 mg PO TID 07/26/20 01/16/23 methadone 40 mg soluble tablet 85 mg PO DAILY 01/11/23 01/16/23 Previous Rx's ?Medication ?Instructions ?Recorded polyethylene glycol 3350 17 17 g PO DAILY #510 grams 04/04/22 gram/dose oral powder (Miralax) albuterol sulfate 90 mcg/actuation 2 puff inhalation Q4-6H PRN 11/28/22 aerosol inhaler (ProAir HFA) shortness of breath or wheezing #8.5 grams benzonatate 200 mg capsule 200 mg PO TID PRN cough #30 caps 11/28/22 doxycycline hyclate 100 mg tablet 100 mg PO BID 10 days #20 tabs 01/16/23 sulfamethoxazole 800 1 tab PO BID 10 days #20 tabs 02/06/23 mg-trimethoprim 160 mg tablet (Bactrim DS) albuterol sulfate 90 mcg/actuation 2 puff inhalation Q4-6H PRN 08/04/23 aerosol inhaler (ProAir HFA) shortness of breath or wheezing #8.5 grams amoxicillin 875 mg-potassium 1 tab PO Q12H 7 days #14 tabs 08/04/23 clavulanate 125 mg tablet tiotropium bromide 2.5 2 inh inhalation BEDTIME #4 grams 08/04/23 mcg/actuation mist for inhalation (Spiriva Respimat) albuterol sulfate 90 mcg/actuation 2 puff inhalation Q4-6H PRN 12/07/23 aerosol inhaler shortness of breath or wheezing #8.5 grams doxycycline hyclate 100 mg capsule 100 mg PO BID #14 caps 12/07/23 tiotropium bromide 2.5 2 puff inhalation DAILY #4 grams 12/07/23 mcg/actuation mist for inhalation (Spiriva Respimat) albuterol sulfate 2.5 mg/3 mL 2.5 mg (3 mL) inhalation Q4-6H PRN 10/01/24 (0.083 %) solution for nebulization bronchospasm #75 mL amoxicillin 875 mg-potassium 1 tab PO BID #14 tabs 10/01/24 clavulanate 125 mg tablet azithromycin 250 mg tablet See Rx Instructions PO .COMPLEX #6 10/01/24 tabs prednisone 20 mg tablet 40 mg (2 x 20 mg) PO DAILY 5 days 10/01/24 #10 tabs Allergies Allergy/AdvReac Type Severity Reaction Status Date / Time hydrocodone [HYDROCODONE] Allergy Unknown RASH Verified 10/01/24 19:30 Influenza Virus Vaccines Allergy Unknown felt very Verified 10/01/24 19:30 sick latex [LATEX] Allergy Unknown UNKNOWN Verified 10/01/24 19:30 morphine Allergy Unknown stomach Verified 10/01/24 19:30 upset Review of Systems Review of Systems: Constitutional : pos Fever, pos Chills ENT/Mouth : No Hoarseness, No sore throat, No Rhinorrhea Eyes: No Redness, No Discharge, No Vision Changes Cardiovascular : No Chest Pain, positive SOB, positive Dyspnea on Exertion, No Edema Respiratory : positive Cough, pos Sputum, positive Wheezing, Gastrointestinal : No Nausea, No Vomiting, No Diarrhea, No abdominal Pain Genitourinary : No Dysuria, No Hematuria Musculoskeletal : No joint pain, No Myalgias Skin : No rash Neuro : No Weakness, No Numbness, No Headache Psych : No anxiety, depression All other systems reviewed and are negative PMFSH Past Medical History Attestation statement: The following information was validated with the patient. Source: old records reviewed Medical History Opiate abuse, continuous PTSD (post-traumatic stress disorder) Constipation Homeless Smoker Foraminal stenosis of cervical region Degenerative cervical spinal stenosis Cervicalgia Surgical History History of surgery History of arthroscopy of left shoulder History of discectomy Family History Family History Father Alzheimer's disease Diabetes mellitus Mother COPD (chronic obstructive pulmonary disease) Pleurisy Brother No problems noted. Sister Melanoma Son No problems noted. Son No problems noted. Social History Social History Alcohol intake: never Patient Tobacco Use Status: Former Tobacco user Cigarette Packs Per Day: 0.5 Cigarettes Per Day: 10.0 Smoked in Last 30 Days: No Use of substances other than those prescribed or required for medical reasons: No Substance Use Type: Marijuana Advance Directives: No Advance Directives Information Provided: No Physical Exam ED Vital Signs: Vital Signs - 24 hr 10/01/24 19:29 10/01/24 20:26 10/01/24 20:30 Temperature 98.3 F Pulse Rate 111 H 120 H Respiratory Rate 22 H 18 Blood Pressure 171/97 H Pulse Oximetry 88 L 94 Oxygen Delivery Method Room Air Room Air Oxygen Flow Rate 10/01/24 21:48 10/01/24 21:57 10/01/24 22:20 Temperature 98.4 F 98.4 F Pulse Rate 108 H 104 H 104 H Respiratory Rate 15 20 20 Blood Pressure 153/68 H 130/55 L 130/55 L Pulse Oximetry 91 L 94 94 Oxygen Delivery Method Nasal Cannula Room Air Room Air Oxygen Flow Rate 2 BMI result Body Mass Index 34.7 Appearance: Alert. Oriented X3. mild acute distress. Eyes: Pupils equal, round and reactive to light. ENT: Pharynx normal. Neck: Normal inspection. Neck supple. CVS: Normal heart rate and rhythm. Pulses normal. Respiratory: mild respiratory distress tachypnea. Breath sounds diffuse wheezing throughout Abdomen: Soft and non-tender. Skin: Skin warm and dry. Normal skin color. Extremities: No lower extremity edema. Neuro: Oriented X 3. No motor deficit. No sensory deficit. CN2-12 intact Course Course Course Narrative: This is an RME performed by Yomaira Everett CNP: Additional HPI, ROS, PE not included below will be deferred to primary provider. Patient is a 64-year-old male who presents to the emergency department for evaluation of nasal congestion, sinus pressure, sore throat, cough, shortness of breath, difficulty breathing. Reports onset was 3-4 days ago but notably worse today. Reports he has ran out of his inhalers. Exam: Expiratory wheezing cardia, O2 saturation 88-89% on room air reports a his baseline he is typically 94%. Plan: Viral serologies, CXR, EKG, serum labs, VBG. Patient meeting SIRS criteria with tachycardia and hypoxia, lactic acid and blood cultures to be obtained. Spoke with rn charge Reevaluation(s) Reevaluation #1: patient walked out without DC instructions signed AMA form with RN and left Medications Administered Discontinued Medications Generic Name Dose Route Start Last Admin Trade Name Betina PRN Reason Stop Dose Admin Ceftriaxone Sodium 1 gm 10/01/24 20:13 10/01/24 20:35 Ceftriaxone Sodium 1 Gm Vial IVPUSH 10/01/24 20:14 1 gm ONCE ONE Administration Albuterol Sulfate 2.5 mg/ 0 mg 10/01/24 20:22 10/01/24 20:26 Albuterol/Ipratropium 3 ml INHALE 10/01/24 20:23 1 dose ONCE ONE Administration Sodium Chloride 1,000 mls @ 999 mls/hr 10/01/24 20:13 10/01/24 21:36 Ns IV 10/01/24 21:13 Infused .Q1H1M ONE Infusion Methylprednisolone Sodium Succinate 60 mg 10/01/24 20:13 10/01/24 20:35 Methylprednisolone Sod Succ 125 Mg/2 Ml Vial IVPUSH 10/01/24 20:14 60 mg ONCE ONE Administration Medical Decision Making Medical Decision Making MDM Narrative: 64 yo male with PMH of COPD not on home O2 does not have a consistent PCP here with c/o wheezing, cough, chills at this time basic labs, empiric steroids, nebs and CXR - suspect bronchitis, URI, viral syndrome. Given hypoxia suspect admission he denies any chest pain. He did state he will get better and give him an hour to get better Differential Diagnosis Differential Diagnoses: The differential diagnosis associated with the presentation includes COPD, bronchitis, viral syndrome Admission/Observation Consideration of admission/observation: Escalation of care including admission/observation considered refuses to stay wants to leave AMA - I do not think he is altered he is aware of concerns and verbalizes we were concerned about his O2 levels. Lab Data MDM Lab Attestation statement: I reviewed the patient's lab results. 10/01/24 20:09 10/01/24 20:09 Labs: Lab Results 10/01/24 10/01/24 10/01/24 Range/Units 20:09 20:10 20:14 WBC 14.2 H (4.8-10.8) X10*3/uL RBC 4.92 (4.60-5.80) X10*6/uL Hgb 14.8 (14.0-18.0) g/dl Hct 43.6 (42.0-52.0) % MCV 88.6 (80.0-98.0) fL MCH 30.1 (27.0-33.0) pg MCHC 33.9 (31.0-36.0) g/dl RDW 12.7 (11.0-16.0) % Plt Count 191 (160-400) X10*3/uL MPV 9.9 (9.4-12.4) fL Immature Gran % (Auto) 0.4 (0.0-0.4) % Neut % (Auto) 78.6 H (45-73) % Lymph % (Auto) 9.2 L (20-40) % [place] % (Auto) 9.3 (2-11) % Eos % (Auto) 1.7 (0-4) % Baso % (Auto) 0.8 (0-2) % Lymph # (Auto) 1.3 (1.2-4.9) X10*3/uL [place] # (Auto) 1.3 H (0.1-1.2) X10*3/uL Eos # (Auto) 0.2 (0.0-0.4) X10*3/uL Baso # (Auto) 0.1 (0.0-0.2) X10*3/uL Abs Immat Gran (auto) 0.06 H (0.00-0.03) X10*3/uL Absolute Neuts (auto) 11.2 H (2.0-8.3) x10*3/uL Absolute Nucleated RBC 0.000 (0.0-0.012) X10*3/uL Nucleated RBC % (auto) 0.0 (0.0-0.2) /100WBC PT 12.5 H (10.9-12.4) SEC INR 1.1 (0.9-1.1) VBG pH 7.48 H (7.32-7.43) VBG pCO2 41 mmHg VBG pO2 58 mmHg VBG HCO3 31 H (22-26) mmol/L VBG O2 Saturation 90.0 % VBG Base Excess 7.2 mmol/L Sodium 140 (135-145) mmol/L Potassium 3.9 (3.3-5.1) mmol/L Chloride 104 (96-108) mmol/L Carbon Dioxide 28 (22-29) mmol/L Anion Gap 12 (12-20) BUN 13 (9-16) mg/dL Creatinine 0.82 (0.5-1.4) mg/dL Estim Creat Clear Calc 126.6 Estimated GFR > 60 Random Glucose 116 H (60-115) mg/dL Lactic Acid 0.8 (0.5-2.0) mmol/L Calcium 9.0 (8.4-10.2) mg/dL Total Bilirubin 1.7 H (0.0-1.0) mg/dL AST 28 (5-37) U/L ALT 28 (0-40) U/L Alkaline Phosphatase 73 (39-117) U/L Troponin I High Sens 2.8 (<3.5-35.0) ng/L Total Protein 7.6 (6.5-8.0) g/dL Albumin 4.1 (3.5-5.0) g/dL Influenza Type A (PCR) NEGATIVE (Negative) Influenza Type B (PCR) NEGATIVE (Negative) RSV RNA Qual (PCR) NEGATIVE (Negative) SARS-CoV-2 RNA (RT-PCR) NEGATIVE (Negative) S. pyogenes GrpA KASSIE Negative (Negative) Independent Interpretation I performed an independent interpretation of an: EKG and Plain X-Ray (no sig change from prior) Interpretation: Rate: 105 Rhythm: sinus tach [place]: normal Normal P waves. Normal MARCELA. Normal QRS complex. ST T wave : no TONYA qTC: 401 prior studies: no acute ischemia The study has been interpreted contemporaneously by me. . External Record Review External record reviewed: Outpatient record Prescription Management I considered prescription management with: Antibiotic and Other Discharge Plan Discharge Clinical Impression: Upper respiratory infection, Acute exacerbation of COPD with asthma Patient Disposition: Left Against Medical Advice Instructions: Upper Respiratory Infection (ED), COPD (Chronic Obstructive Pulmonary Disease) (ED), Against Medical Advice (ED) Prescriptions: New albuterol sulfate 2.5 mg /3 mL (0.083 %) solution for nebulization 2.5 mg inhalation Q4-6H PRN (Reason: bronchospasm) Qty: 75 0RF azithromycin 250 mg tablet See Rx Instructions .ROUTE .COMPLEX Qty: 6 0RF Rx Instructions: For 250 mg dose pack: take 500 mg today (day 1), then 250 mg for 4 days (days 2-5) prednisone 20 mg tablet 40 mg PO DAILY 5 Days Qty: 10 0RF amoxicillin-pot clavulanate 875-125 mg tablet 1 tab PO BID Qty: 14 0RF No Action polyethylene glycol 3350 [Miralax] 17 gram/dose powder 17 g PO DAILY Qty: 510 0RF benzonatate 200 mg capsule 200 mg PO TID PRN (Reason: cough) Qty: 30 0RF albuterol sulfate [ProAir HFA] 90 mcg/actuation HFA aerosol inhaler 2 puff inhalation Q4-6H PRN (Reason: shortness of breath or wheezing) Qty: 8.5 2RF Spiriva Respimat 2.5 mcg/actuation mist 2 puff inhalation DAILY Qty: 4 0RF albuterol sulfate 90 mcg/actuation HFA aerosol inhaler 2 puff inhalation Q4-6H PRN (Reason: shortness of breath or wheezing) Qty: 8.5 0RF doxycycline hyclate 100 mg capsule 100 mg PO BID Qty: 14 0RF amoxicillin-pot clavulanate 875-125 mg tablet 1 tab PO Q12H 7 Days Qty: 14 0RF Spiriva Respimat 2.5 mcg/actuation mist 2 inh inhalation BEDTIME Qty: 4 0RF albuterol sulfate [ProAir HFA] 90 mcg/actuation HFA aerosol inhaler 2 puff inhalation Q4-6H PRN (Reason: shortness of breath or wheezing) Qty: 8.5 0RF ibuprofen 800 mg tablet 800 mg PO TID sulfamethoxazole-trimethoprim [Bactrim DS] 800-160 mg tablet 1 tab PO BID 10 Days Qty: 20 0RF methadone 40 mg tablet,soluble 85 mg PO DAILY doxycycline hyclate 100 mg tablet 100 mg PO BID 10 Days Qty: 20 0RF Stand Alone Forms: Against Medical Advice Interventions: ED Discharge Assessment Last Done: 10/01/24 22:20 Discharge Date/Time: 10/01/24 22:20 Print Language: Citizen Of [place]
[2024-10-01 19:29] VITALS: BP 171/97; PULSE 111; RESP 22; TEMP 36.8; O2SAT 88; BMI 34.7
--- NOTE | 2024-10-01 19:32 | ECG_ITS ---
Test Reason : SOB Blood Pressure : */* mmHG Vent. Rate : 105 BPM Atrial Rate : 105 BPM P-R Int : 182 ms QRS Dur : 88 ms QT Int : 304 ms P-R-T Axes : 65 65 63 degrees QTcB Int : 401 ms Sinus tachycardia Nonspecific T wave abnormality Abnormal ECG When compared with ECG of 12-Jan-2023 02:19, No significant changes seen Referred By: Olga Everett Electronically Signed By: ANGEL HANNAH
[2024-10-01 20:16] LABS: MANUAL DIFF FLAG NO
[2024-10-01 20:17] LABS: Basophils Absolute Auto 0.1 X10*3/uL (0.0-0.2); Basophils Percent Auto 0.8 % (0-2); Eosinophils Absolute Auto 0.2 X10*3/uL (0.0-0.4); Eosinophils Percent Auto 1.7 % (0-4); Hematocrit 43.6 % (42.0-52.0); Hemoglobin 14.8 g/dl (14.0-18.0); Imm Gran Abs Auto 0.06 X10*3/uL (0.00-0.03); Imm Gran Pct Auto 0.4 % (0.0-0.4); Lymphocytes Absolute Auto 1.3 X10*3/uL (1.2-4.9); Lymphocytes Percent Auto 9.2 % (20-40); Mean Corpuscular HGB Conc 33.9 g/dl (31.0-36.0); Mean Corpuscular Hemoglobin 30.1 pg (27.0-33.0); Mean Corpuscular Volume 88.6 fL (80.0-98.0); Mean Platelet Volume 9.9 fL (9.4-12.4); Monocytes Absolute Auto 1.3 X10*3/uL (0.1-1.2); Monocytes Percent Auto 9.3 % (2-11); Neutrophils Absolute Auto 11.2 x10*3/uL (2.0-8.3); Neutrophils Percent Auto 78.6 % (45-73); Platelet Count 191 X10*3/uL (160-400); Red Blood Count 4.92 X10*6/uL (4.60-5.80); Red Cell Distribution Width 12.7 % (11.0-16.0); White Blood Count 14.2 X10*3/uL (4.8-10.8)
[2024-10-01 20:25] LABS: IDNOW Serial# 08D9AD1C; Strep A Nucleic Acid Negative (Negative)
[2024-10-01 20:26] VITALS: PULSE 120; RESP 18; O2SAT 91
[2024-10-01] MEDS: Albuterol Sulfate 2.5 MG, Albuterol/Iprat 2.5/0.5MG 3 ML 3 ML INHALE (20:26)
[2024-10-01 20:27] LABS: VBG Base Excess 7.2 mmol/L; VBG HCO3 31 mmol/L (22-26); VBG pCO2 41 mmHg; VBG pH 7.48 (7.32-7.43); VBG pO2 58 mmHg
[2024-10-01 20:28] LABS: INTERNATIONAL NORM RATIO 1.1 (0.9-1.1); Prothrombin Time 12.5 SEC (10.9-12.4)
[2024-10-01 20:30] VITALS: PULSE 105; O2SAT 94
[2024-10-01] MEDS: methylPREDNISolone Sod Succ 125 MG/2 ML VIAL 60 MG IVPUSH (20:35)
[2024-10-01] MEDS: cefTRIAXone sodium 1 GM VIAL IVPUSH (20:35)
[2024-10-01] MEDS: 0.9 % Sodium Chloride 1,000 ML 999 ML IV (20:35)
[2024-10-01 20:37] LABS: Alanine Aminotransferase 28 U/L (0-40); Albumin Level 4.1 g/dL (3.5-5.0); Alkaline Phosphatase 73 U/L (39-117); Anion Gap 12 (12-20); Aspartate Amino Transferase 28 U/L (5-37); Bilirubin Total 1.7 mg/dL (0.0-1.0); Blood Urea Nitrogen 13 mg/dL (9-16); Carbon Dioxide 28 mmol/L (22-29); Chloride 104 mmol/L (96-108); Creatinine Clr Calc Pharmacy 126.6; Estimated Glomerular Filt Rate > 60; Glucose Random 116 mg/dL (60-115); Lactic Acid 0.8 mmol/L (0.5-2.0); Potassium 3.9 mmol/L (3.3-5.1); Sodium 140 mmol/L (135-145); Total Protein 7.6 g/dL (6.5-8.0)
[2024-10-01 20:44] LABS: Troponin-I High Sensitivity 2.8 ng/L (<3.5-35.0)
[2024-10-01 20:53] LABS: Influenza A PCR NEGATIVE (Negative); Influenza B PCR NEGATIVE (Negative); Resp Syncy Virus RNA Qual PCR NEGATIVE (Negative); SARS COV2 PCR INHOUSE NEGATIVE (Negative)
[2024-10-01 21:09] LABS: Venous Blood Gas Refer to POC result
[2024-10-01 21:48] VITALS: BP 153/68; PULSE 108; RESP 15; TEMP 36.9; O2SAT 91
[2024-10-01 21:57] VITALS: BP 130/55; PULSE 104; RESP 20; O2SAT 94
[2024-10-01 22:20] VITALS: BP 130/55; PULSE 104; RESP 20; TEMP 36.9; O2SAT 94
--- NOTE | 2024-10-01 22:20 | PC.NURSE ---
Upon this RN entering the room to continue ongoing sepsis protocol, patient found to have removed the cardiac monitoring leads, BP cuff, pulse oximeter, and put his own clothes back on. Patient stated Can you take the IV out? I'm feeling so much better and I just want to go home. I knew I had an infection and just needed to get some fluids and antibiotics and now I'm so much better . Agreed to sign 'leaving against medical advice' paperwork. notified. IV access removed by this RN.
== END 2024-10-01 22:20 | disposition left against medical advice (07) ==
PROVIDERS: Nurse Practitioner Family; Emergency Provider Emergency Medicine
DX: J44.1 Chronic obstructive pulmonary disease with (acute) exacerbation (principal); J06.9 Acute upper respiratory infection, unspecified; R06.02 Shortness of breath; R00.0 Tachycardia, unspecified; R05.9 Cough, unspecified; Z03.818 Encounter for observation for suspected exposure to other biological agents ruled out; Z87.891 Personal history of nicotine dependence; Z99.81 Dependence on supplemental oxygen; Z79.899 Other long term (current) drug therapy
CPT/HCPCS: 0241U; 71046; 80053; 82803; 83605; 84484; 85025; 85610; 87040; 87651; 93005; 94640; 99285; J0696; J2919

== ENCOUNTER → 2024-10-01 19:32 | Outpatient (BNV) | payer MEDICARE, SELFPAY | PROVIDERS: Emergency Provider Emergency Medicine; Visit Provider Internal Medicine | DX: R00.0 Tachycardia, unspecified (principal) | CPT/HCPCS: 93010 ==

== ENCOUNTER → 2024-10-01 19:35 | Outpatient (BNV) | payer MEDICARE, SELFPAY | PROVIDERS: Emergency Provider Emergency Medicine; Visit Provider Radiology Diagnostic Radiology | DX: R06.02 Shortness of breath (principal); R05.9 Cough, unspecified | CPT/HCPCS: 71046 ==